=== PATIENT | female | born 1955 | race Caucasian/White ===

== ENCOUNTER 2023-05-12 09:43 | Outpatient (RCR) | payer MEDICARE, SELFPAY ==
[2023-04-14] VITALS (8 sets, daily range): BP systolic 92–146; BP diastolic 57–84; BMI 40.2
[2023-04-14] MEDS: TYLENOL 650 MG PO (09:42)
[2023-04-14] MEDS: NSS 250 IV (09:42)
[2023-04-14] MEDS: DECADRON 0.599999999999999978 MG IV (09:43)
[2023-04-14] MEDS: ZOFRAN 54 MG IV (09:43)
[2023-04-14] MEDS: GAMMAGARD 50 IV (10:14)
[2023-04-14] MEDS: GAMMAGARD 200 IV (10:50)
[2023-04-14] MEDS: GAMMAGARD 300 IV (11:59)
[2023-05-12] VITALS (8 sets, daily range): BP systolic 114–132; BP diastolic 64–77; BMI 40.2
[2023-05-12] MEDS: NSS 250 IV (10:35)
[2023-05-12] MEDS: TYLENOL 650 MG PO (10:35)
[2023-05-12] MEDS: DECADRON 0.599999999999999978 MG IV (10:35)
[2023-05-12] MEDS: ZOFRAN 54 MG IV (10:36)
[2023-05-12] MEDS: GAMMAGARD 50 IV (11:08)
[2023-05-12] MEDS: GAMMAGARD 200 IV (11:41)
[2023-05-12] MEDS: GAMMAGARD 300 IV (12:50)
== END 2023-05-12 23:59 | disposition home or self-care (01) ==
LOC: OID 09:43
PROVIDERS: ATTENDING PHYSICIAN Internal Medicine Critical Care Medicine; FAMILY PHYSICIAN Internal Medicine; OTHER PHYSICIAN Internal Medicine; OTHER PHYSICIAN Internal Medicine Geriatric Medicine
DX: D80.8 Other immunodeficiencies with predominantly antibody defects (principal); D50.8 Other iron deficiency anemias (principal); D83.9 Common variable immunodeficiency, unspecified; D80.9 Immunodeficiency with predominantly antibody defects, unspecified
CPT/HCPCS: 96361; 96365; 96366; 96367; 96375; J1569

== ENCOUNTER 2023-06-09 09:30 | Outpatient (RCR) | payer MEDICARE, SELFPAY ==
[2023-06-09] VITALS (7 sets, daily range): BP systolic 119–154; BP diastolic 69–96; BMI 40.1
[2023-06-09] MEDS: NSS 250 IV (10:27)
[2023-06-09] MEDS: TYLENOL 650 MG PO (10:27)
[2023-06-09] MEDS: DECADRON 0.599999999999999978 MG IV (10:33)
[2023-06-09] MEDS: ZOFRAN 54 MG IV (10:33)
[2023-06-09] MEDS: GAMMAGARD 50 IV (11:01)
[2023-06-09] MEDS: GAMMAGARD 200 IV (11:33)
[2023-06-09] MEDS: GAMMAGARD 300 IV (12:39)
== END 2023-06-10 10:30 | disposition home or self-care (01) ==
LOC: OID 09:30
PROVIDERS: ATTENDING PHYSICIAN Internal Medicine Critical Care Medicine; FAMILY PHYSICIAN Internal Medicine; OTHER PHYSICIAN Internal Medicine; OTHER PHYSICIAN Internal Medicine Geriatric Medicine
DX: D80.8 Other immunodeficiencies with predominantly antibody defects (principal); D83.9 Common variable immunodeficiency, unspecified; D80.9 Immunodeficiency with predominantly antibody defects, unspecified
CPT/HCPCS: 96361; 96365; 96366; 96367; 96375; J1569

== ENCOUNTER → 2023-06-16 13:01 | Outpatient (REF) | payer MEDICARE, SELFPAY | LOC: HWRAD 13:01 | PROVIDERS: ATTENDING PHYSICIAN Podiatrist Foot Surgery; FAMILY PHYSICIAN Internal Medicine | DX: M89.9 Disorder of bone, unspecified (principal); M85.89 Other specified disorders of bone density and structure, multiple sites | CPT/HCPCS: 77080 ==

== ENCOUNTER 2023-07-02 12:23 | Emergency (ER) | payer MEDICARE, SELFPAY ==
[2023-07-02 12:25] VITALS: BP 128/69
[2023-07-02 12:34] VITALS: BMI 41.7
[2023-07-02] MEDS: NORCO 5/325 1 TABLET PO (13:27)
[2023-07-02 13:30] VITALS: BP 134/65
--- NOTE | 2023-07-02 14:11 | ED.MUSCINJ ---
HPI-Injury
General
Chief Complaint: Fall
Source: patient
Exam Limitations: none
Time Seen by Provider: 07/02/23 12:26
Nursing documentation reviewed up to this point in time: agreed with
Travel History
Have you had any contact with someone who has COVID-19?: No
Do you have any symptoms of coronavirus? Fever > 100 degrees, chills, cough, shortness of breath, sore throat, loss of taste or smell, muscle aches, or headache?: No
History of Present Illness-Injury
Is this injury a work related problem?: No
Is pt an associate of [facility]?: No
Initial Injury comments:
Patient states she was walking with her walker and her legs became weak (typical for her). SHe started to fall and her wrist ggot caught between the railing and the wall. Denies hitting her head. COmplains of pain to her right wrist. Brought to
ED via EMS for eval.
Past History
Past History
ED Past Medical History: Arrthythmia, Asthma, CAD, COPD, CVA, HTN, [place], Seizures, Hypothyroidism, Psychiatric, Other and Other
ED Past Surgical History: Cardiac, Cholecystectomy, Orthopedic and Other
Social History
Tobacco: Former smoker
Alcohol: None
Drug: None
Personal: Single
Living: prison
Employment: Disabled
Family History
Family History: Hypertension
Review of Systems
Review of Systems
Allergies reviewed?: Yes
All Other Systems: ROS reviewed and negative except as documented in HPI and ROS
Constitutional: Reports no symptoms
Musculoskeletal: Reports joint pain (pain to right wrist)
Skin: Reports no symptoms
Neurological: Reports no symptoms
Psychiatric: Reports no symptoms
Musculoskeletal Injury Exam
Musculoskeletal Injury Exam
Right Wrist:
Pain with Movement?: Moderate
Tender to palpation?: Moderate
Soft tissue swelling?: Mild
External deformity and angulation?: None
Joint effusion?: None
Contusion?: None
Hematoma-local bleeding into tissue?: Mild
Strain- Sprain- Tear (Connective tissue injury)?: Moderate
Crepitus with movement?: No
Joint instability?: No
Malalignment/deformity?: No
Range of motion: Limited
Distal skin color and temperature: normal-warm & good color
Capillary Refill: normal
Normal distal neurovascular exam?: Yes
Peripheral Pulses: radial (right): 3+
Phy Exam
General Physical Exam
General Presentation: well appearing and no apparent distress
General age: appears stated age
General Skin: warm and dry
General Habitus: normal
General Mental: alert
Musculoskeletal Exam
Musculoskeletal Exam: neuro vasc intact
Skin Exam
Skin Exam: normal color, warm/dry and no rash
Psychiatric Exam
Psychiatric Exam: normal mood/affect
Injury Course
Orders/Labs/Results
Orders:
Orders
07/02/23 12:41
Wrist, Right 3 Views [CR Wrist - Right Min 3 Views] Urgent
Comment:
Reason For Exam: fall
07/02/23 13:21
Hydrocodone 5/APAP 325 [[place] 5/325] 1 tablet PO NOW STA
07/02/23 14:07
Volar Right-Treatment ONCE
*Radiology
Radiology exam reviewed: radiology read reviewed
*Pulse Oximetry
Patient hypoxic: no
*Critical Care Note
Total Time (30-74mins, 75-104mins- exclusive of procedures): Not Applicable
ED Attending Note
-
Portions of this chart may have been created with voice recognition software.� Occasional wrong word or��sound alike� substitutions may have occurred due to the inherent limitations of voice recognition software.
Discharge Plan
Departure
Patient Disposition: Home (Routine Discharge)
Date of Disposition: 07/02/23
Time of Disposition: 14:08
Patient with high blood pressure during this ER visit?: No
Condition: Good
Covid-19: Not Applicable
Discharge Problem:
Fracture of wrist
Instructions: Using Cold for Pain, Splint Care, Wrist Fracture
Prescriptions:
No Action
nitroglycerin 0.4 MG tablet, sublingual
0.4 mg sublingual [id number] PRN (Reason: chest pain)
Myrbetriq 25 MG tablet extended release 24 hr
50 mg PO .QPM
Patient Comments:
TAKES AT 1600
simethicone [Gas Relief (simethicone)] 80 MG tablet,chewable
80 mg PO Q6H PRN (Reason: gas)
memantine 10 MG tablet
10 mg PO BID
ondansetron HCl 8 MG tablet
8 mg PO Q6H PRN (Reason: nausea/vomiting)
folic acid 1 MG tablet
1 mg PO DAILY
quetiapine 300 MG tablet
600 mg PO HS
trazodone 100 MG tablet
200 mg PO HS
meclizine 25 MG tablet
25 mg PO Q6H PRN (Reason: dizziness)
nystatin [Nyamyc] 60 GM powder
60 gm topical DAILY
Rx Instructions:
redness to abdomen and groin
duloxetine 60 mg Capsule,Delayed Release(Dr/Ec)
120 mg PO HS
Breztri Aerosphere 160-9-4.8 mcg/actuation Hfa Aerosol Inhaler
2 inh INHALATION R BID
Nurtec ODT 75 mg Tablet,Disintegrating
75 mg PO Q48H
lamotrigine 200 mg tablet
200 mg PO Q12H
magnesium oxide 420 mg tablet
420 mg PO BID
polyethylene glycol 3350 [Miralax] 17 gram Powder In Packet
17 g PO DAILY PRN (Reason: irregularity)
naloxone 0.4 mg/mL solution
0.4 mg IM Q2MPRN PRN (Reason: opioid overdose)
cyanocobalamin (vitamin B-12) [Vitamin B-12] 1,000 mcg Tablet
1,000 mcg PO DAILY
amlodipine 5 mg tablet
5 mg PO DAILY
furosemide 80 mg Tablet
80 mg PO BID
pantoprazole 40 mg tablet,delayed release (DR/EC)
40 mg PO .QPM
hydroxyzine HCl 25 mg Tablet
25 mg PO BID
ergocalciferol (vitamin D2) 1,250 mcg (50,000 unit) Capsule
1,250 mcg PO QWEEK
Patient Comments:
TAKES ON WEDNESDAYS
alum-mag hydroxide-simeth 200-200-20 mg/5 mL suspension
20 ml PO Q6H PRN (Reason: stomach distress)
Refresh Classic (PF) 1.4-0.6 % [place]
1 drp BOTH EYES QID PRN (Reason: dry eyes)
Saccharomyces boulardii [Florastor] 250 mg Capsule
250 mg PO BID
ferrous sulfate, dried 159 mg (45 mg iron) Tablet Extended Release
159 mg PO BID
guaifenesin [Mucinex] 600 mg Tablet Extended Release 12hr
600 mg PO BID
Vraylar 1.5 mg capsule
3 mg PO DAILY
oxymetazoline 0.05 % [place],Non-Aerosol
1 spray INTRANASAL BID Qty: 0
Eliquis 5 mg Tablet
5 mg PO BID
potassium chloride 20 mEq Tablet,Er Particles/Crystals
20 meq PO DAILY Qty: 30 0RF
oxycodone [OxyContin] 20 mg Tablet,Oral Only,Ext.Rel.12 Hr
20 mg PO Q12 Qty: 6 0RF
clonazepam 0.5 MG tablet
0.5 mg PO QID Qty: 10 0RF
oxycodone-acetaminophen 5-325 mg tablet
1 tab PO Q6H PRN (Reason: moderate pain) Qty: 7 0RF
donepezil 10 mg tablet
10 mg PO BID
chlorhexidine gluconate [Hibiclens] 4 % Liquid
1 applic TOPICAL DAILY
Patient Comments:
TUESDAY AND TUESDAY
Referrals:
Matt Fong MD [Active] - Call in 1-3 days for appt
Nicole Castle MD [Family Provider] -
Interventions
Interventions:
*General Assessment Last Done: 07/02/23 12:32
*Neglect/Abuse Screening Last Done: 07/02/23 12:32
*ED COVID-19 Vaccine History Last Done: 07/02/23 12:34
Discharge Date and Time
Print Language: FRENCH
[2023-07-02 14:57] VITALS: BP 138/66
== END 2023-07-02 15:00 | disposition home or self-care (01) ==
LOC: EMR 12:23
PROVIDERS: EMERGENCY PHYSICIAN Emergency Medicine; FAMILY PHYSICIAN Internal Medicine
DX: S62.101A Fracture of unspecified carpal bone, right wrist, initial encounter for closed fracture (principal); R53.1 Weakness; X58.XXXA Exposure to other specified factors, initial encounter; Y93.01 Activity, walking, marching and hiking; I25.10 Atherosclerotic heart disease of native coronary artery without angina pectoris; E11.40 Type 2 diabetes mellitus with diabetic neuropathy, unspecified; I11.0 Hypertensive heart disease with heart failure; I50.9 Heart failure, unspecified; K21.9 Gastro-esophageal reflux disease without esophagitis; K58.9 Irritable bowel syndrome, unspecified; K44.9 Diaphragmatic hernia without obstruction or gangrene; M19.90 Unspecified osteoarthritis, unspecified site; M79.7 Fibromyalgia; E03.9 Hypothyroidism, unspecified; J45.909 Unspecified asthma, uncomplicated; R56.9 Unspecified convulsions; F20.9 Schizophrenia, unspecified; F31.9 Bipolar disorder, unspecified; I25.2 Old myocardial infarction; Z95.0 Presence of cardiac pacemaker; Z86.73 Personal history of transient ischemic attack (TIA), and cerebral infarction without residual deficits; Z85.828 Personal history of other malignant neoplasm of skin; Z87.891 Personal history of nicotine dependence; Z90.49 Acquired absence of other specified parts of digestive tract; Z98.84 Bariatric surgery status
CPT/HCPCS: 99283; 29125; 73110

== ENCOUNTER 2023-07-04 13:08 | Observation (INO) | payer MEDICARE, SELFPAY ==
[2023-07-04] VITALS (7 sets, daily range): BP systolic 110–148; BP diastolic 59–94; BMI 41.3; BMI 36.8
--- NOTE | 2023-07-04 10:44 | ED.GENMED ---
History of Present Illness
General
Chief Complaint: Fatigue
Source: patient and ambulance crew
Exam Limitations: none
Time Seen by Provider: 07/04/23 10:07
Nursing documentation reviewed up to this point in time: agreed with
Travel History
Have you had any contact with someone who has COVID-19?: No
Do you have any symptoms of coronavirus? Fever > 100 degrees, chills, cough, shortness of breath, sore throat, loss of taste or smell, muscle aches, or headache?: No
History of Present Illness
History of Present Illness:
pt is a 67 y/o F with h/o CVA with R sided weakness, resides at [facility]
was here 2 days ago after falling and fracturing her right wrist
she was splinted and sent back to [facility]
pt usually can get herself tot hebathroom and walk around using walker
she was unable to really get out of bed, feed self, over the past day or two since being back at home
she is very dry and wants water
she says no one was there to help her eat/drink
she also has a sore throat, feels cold;
she denies cp, sob, headache, abdominal pain, vomiting, diarrhea
has pain in her right wrist
per EMS pt was sleepy today and thats' why 911 was caleld
sugar 110
pt was given narcan becuase of her opiate dependence and they thought she was overmedicated but it didn't change symptoms
she does keep her eyes closed but wakes up to talk to us
and was able to give the whole history
Past History
Past History
ED Past Medical History: Arrthythmia, Asthma, CAD, COPD, CVA, HTN, [place], Seizures, Hypothyroidism, Psychiatric, Other and Other
ED Past Surgical History: Cardiac, Cholecystectomy, Orthopedic and Other
Social History
Tobacco: Former smoker
Alcohol: None
Drug: None
Personal: Single
Living: [facility]
Employment: Disabled
Family History
Family History: Hypertension
Review of Systems
Review of Systems
Allergies reviewed?: Yes
All Other Systems: Not applicable
Phy Exam
Physical Exam
Physical Exam:
GENERAL: tired,f atigued , in no apparent distress, eyes closed, easily arousable and speaks clearly, oriented
EYE: pupils equal and reactive
NECK: Supple
ENT: o/p clr, VERY DRY MOUTH
CARDIAC: Regular rate and rhythm , mild edema.
LUNGS: Clear breath sounds bilaterally, no acute respiratory distress, no wheezes/rales/rhonchi
ABDOMEN: Soft, without focal tenderness, no r/g, no cvat, normal bowel sounds
NEUROLOGICAL: Alert and oriented, no focal neuro deficits
SKIN: Warm and dry, skin intact.
MUSCULOSKELETAL: right arm in a splint
no signficant swellignin legs, mild edema
PSYCH: Normal and appropriate interaction.
Course
Orders/Labs/Results
Orders:
Orders
07/04/23 10:31
Cardiac Monitoring- Treatment ONCE
07/04/23 10:32
Electrocardiogram (*1) Urgent
Reason for Study: Other
Other Reason for Exam: sepsis
EKG- Treatment ONCE
07/04/23 10:47
COVID-19 Antigen Urgent
Source: Nasal Swab
Complete Blood Count/With Diff Urgent
Comprehensive Metabolic Panel Urgent
Lactic Acid Q4H
Comment: CANCEL 2nd LACTIC ACID IF 1st LACTIC ACID IS LESS THAN 2
Magnesium Urgent
TSH Reflex To Free T4 Urgent
Influenza A+B Rapid Molecular Urgent
KHADAR Source: Nasal Swab
Specimen Description:
07/04/23 11:37
Potassium Chloride Powder [Klor-Con] 20 meq PO NOW STA
07/04/23 11:50
0.9% Sodium Chloride 250 ml [Nss] 250 ml IV BOLUS
07/04/23 12:01
Potassium Chloride [KCl] 20 meq 0.9% Sodium Chloride 150 ml [Nss] 150 ml IV NOW
07/04/23 12:52
Admit/Transfer Patient As Directed
Co-Sign Provider:
Level of Care: Observation services
Assign to:: Telemetry
Physician / Group: aislinn stiles
Diagnosis: gen weakness, hypokalemia, volume depletion, amb dys
Reason for Telemetry: Arrhythmia
Date to Stop Telemetry: 07/07/23
Time to Stop Telemetry: 11:00
Code Status As Directed
Resuscitation Status: Full Code
07/04/23 Dinner
Cholesterol Lowering
At Your Request: Full Participation
Cholesterol Lowering: Sodium, 2 Gram
07/04/23 15:34
0.9% Sodium Chloride 1000 ml [Nss] 1,000 ml IV 60 mls/hr
Artificial Tears (Pf) [Refresh Eye Drops (Pf)] 1 drops BOTH EYES Q6HPRN PRN
Bisacodyl [Dulcolax] 10 mg RECTAL [id number] PRN
Clonazepam [Klonopin] 0.5 mg PO QID
Docusate W/Senna [Senokot-S] 1 tablet PO BIDPRN PRN
Meclizine [Antivert] 25 mg PO Q6HPRN PRN
Oxycodone/Acetaminophen [Percocet 5/325] 1 tablet PO Q6HPRN PRN
Polyethylene Glycol Powder [Miralax] 17 grams PO DAILYPRN PRN
Simethicone [Mylicon] 80 mg PO Q6HPRN PRN
rimegepant [Nurtec ODT] 75 mg PO Q48H
07/04/23 15:34
VTE Contraindication Routine
VTE Mechanical Device Contraindication: Medical Contraindication
Pharmocologic Contraindication: Medical Contraindication
Comment: pt on eliquis
Activity As Directed
Activity Level: With Assistance
Intake/ Output As Directed
Frequency: Per unit guidelines
Vital Signs As Directed
Frequency: Per unit guidelines
Weight As Directed
Frequency: Daily
Ot Eval And Treat Routine
Pt Eval And Treat Routine
Activity Level: With Assistance
07/04/23 15:52
Ondansetron HCl [Zofran] 8 mg PO Q6HPRN PRN
07/04/23 18:00
Pantoprazole [Protonix] 40 mg PO QPM
Tolterodine Extended Release [Detrol LA] 4 mg PO QPM
07/04/23 20:00
Apixaban [Eliquis] 5 mg PO BID
Budesonide/Formoterol 160/4.5 [Symbicort 160/4.5 Mcg Inhaler] 2 puff INH R BID
Donepezil HCl [Aricept] 10 mg PO BID
HydrOXYZINE [Atarax] 25 mg PO BID
Lamotrigine [Lamictal] 200 mg PO Q12
Magnesium l-Lactate [Mag-Tab Sr] 84 mg PO BID
Memantine HCl [Namenda] 10 mg PO BID
Oxycodone Controlled Release [Oxycontin (Controlled Release)] 20 mg PO Q12
Oxymetazoline HCl [Afrin Nasal [place]] See Dose Instructions NASAL BID
Saccharomyces Boulardii [Florastor] 250 mg PO BID
07/04/23 22:00
Duloxetine Delayed Release [Cymbalta Delayed Release] 60 mg PO HS
Quetiapine Fumarate [Seroquel] 300 mg PO HS
07/05/23 06:00
Complete Blood Count/With Diff IN AM
Comprehensive Metabolic Panel IN AM
07/05/23 08:00
Amlodipine [Norvasc] 5 mg PO DAILY
Cyanocobalamin [Vitamin B-12] 1,000 mcg PO DAILY
FOLic ACID [Folvite] 1 mg PO DAILY
cariprazine [Vraylar] 3 mg PO DAILY
07/06/23 08:00
Ergocalciferol [Drisdol (Vitamin D2)] 50,000 units PO WE
07/07/23 11:00
DC Protocol for Telemetry ONCE
Abnormal Lab Results
07/04/23
10:47
MCH 32.8 H pg
(27.0-31.0)
Absolute Monos (auto) 0.7 H 10^3/uL
(0.1-0.6)
Lymphocytes % 15.6 L %
(20.5-51.1)
Monocytes % 10.0 H %
(1.7-9.3)
Potassium 2.7 L* mmol/L
(3.5-5.1)
Carbon Dioxide 33 H mmol/L
(22-30)
Glucose 112 H mg/dl
(70-99)
Magnesium 2.4 H mg/dl
(1.6-2.3)
Alkaline Phosphatase 130 H U/L
(38-126)
07/04/23 10:47
07/04/23 10:47
Vital Signs
Initial and Last Documented VS:
Initial Vital Signs
Temp Pulse Resp BP Pulse Ox
98.6 F 72 16 139/62 94
07/04/23 10:18 07/04/23 10:18 07/04/23 10:18 07/04/23 10:18 07/04/23 10:18
Last Documented Vital Signs
Temp Pulse Resp BP Pulse Ox
98.3 F 70 16 142/60 94
07/04/23 13:45 07/04/23 13:45 07/04/23 13:45 07/04/23 13:45 07/04/23 13:45
MDM/Problems Addressed
Differential Diagnosis Includes:
overmedicated, dehdyration
MDM/Problems Addressed:
67 y/o F from [facility], h/o CVA chronic R weakness, some mild dementia (she is a&ox3 today), chf on lasix bid;
here for generalized fatigue, somnolence
was here 2 days ago for fall, has fracture of right wrist, splinted and sent back
pt hasn't been able to get up much or eat or drink because of her arm
chronic opiates for chronic pain; today was really sleepy for staff; ems gave narcan no change; she is tired here but wakes and speaks clearly and answers questions correctly; looks extremely dry, says no one helped her eat and drink in 24 hours
k is 2.7, mag normal; getting ivf and k, pt is too weak to go home
*Critical Care Note
Total Time (30-74mins, 75-104mins- exclusive of procedures): Not Applicable
ED Attending Note
-
Portions of this chart may have been created with voice recognition software.� Occasional wrong word or��sound alike� substitutions may have occurred due to the inherent limitations of voice recognition software.
Discharge Plan
Departure
Patient Disposition: Admit
Date of Disposition: 07/04/23
Time of Disposition: 11:38
Admit to: Telemetry
Presentation/result/management discussed w/ accepting MD/DO: Hospitalist
Condition: Fair
Covid-19: Not Applicable
Discharge Problem:
Fatigue, Hypokalemia, Dehydration
Interventions
Interventions:
*Risk Screen - Suicide Last Done: 07/04/23 10:18
*General Assessment Last Done: 07/04/23 10:18
*Neglect/Abuse Screening Last Done: 07/04/23 10:18
ED- Fall Risk Assessment Last Done: 07/04/23 10:18
*ED COVID-19 Vaccine History Last Done: 07/04/23 10:18
*Nursing Disposition Last Done: 07/04/23 15:32
Discharge Date and Time
Discharge Date/Time: 07/04/23 15:33
[2023-07-04 10:59] LABS: % Basophils 0.4 % (0-2); % Eosinophils 1.5 % (0-6); % Immature Granulocytes 0.4 % (0-0.5); % Lymphocytes 15.6 % (20.5-51.1); % Neutrophils 72.1 % (42.2-75.2); Absolute Eosinophils 0.1 10^3/uL (0-0.7); Absolute Lymphocytes 1.2 10^3/uL (1.2-3.4); Absolute Monocytes 0.7 10^3/uL (0.1-0.6); Absolute Neutrophils 5.4 10^3/uL (1.4-6.5); Hematocrit 44.5 % (37.0-47.0); Hemoglobin 14.9 g/dL (12.0-16.0); Mean Corp Hgb Conc. 33.5 g/dL (33.0-37.0); Mean Corpuscular Hgb 32.8 pg (27.0-31.0); Mean Platelet Volume 9.3 fL (7.4-10.4); Nucleated Red Blood Cells % 0 %; Platelet Count 195 10^3/uL (130-400); Red Blood Cell Count 4.54 10^6/uL (4.20-5.40); Red Cell Dist. Width 14.4 % (11.5-14.5); White Blood Cell Count 7.4 10^3/uL (4.8-10.8)
[2023-07-04 11:19] LABS: ALT (SGPT) 16 U/L (0-35); AST (SGOT) 26 U/L (14-36); Alkaline Phosphatase 130 U/L (38-126); Calcium 9.6 mg/dl (8.4-10.2); Estimated Creatinine Clearance 72 ml/min; Glucose 112 mg/dl (70-99); Magnesium 2.4 mg/dl (1.6-2.3); Sodium 143 mmol/L (135-145); Total Bilirubin 1.1 mg/dl (0.2-1.3); Total Protein 7.5 g/dl (6.3-8.2); eGFR > 60.00
[2023-07-04 11:22] LABS: Lactic Acid 0.8 mmol/L (0.7-2.0)
[2023-07-04 11:23] LABS: Blood Urea Nitrogen 11 mg/dl (7-17); Carbon Dioxide 33 mmol/L (22-30); Chloride 103 mmol/L (98-107); Potassium 2.7 mmol/L (3.5-5.1)
[2023-07-04 11:25] LABS: COVID-19 Antigen Negative (Negative)
[2023-07-04] MEDS: KLOR-CON 20 MEQ PO (11:56)
[2023-07-04] MEDS: KCL 160 MEQ IV (12:18)
[2023-07-04] MEDS: NSS 250 IV (12:29)
--- NOTE | 2023-07-04 12:41 | HPS.HSE ---
Family Physician
-
Family Physician: Nicole Castle
Chief Complaint
-
Weakness, decreased oral intake
History of Present Illness
67-year-old female from [facility] currently living in assisted living. She reports she fell 2 days ago was seen in the ER and had a right wrist fracture. She reports going back to [facility] where she has not been eating or drinking for
approximately 1 day due to feeling dizzy and nauseous. She does state staff does bring food to her room. Her mouth and lips are and peeling. She denies headache, blurred vision, chest pain, palpitations, shortness breath, cough, fever, chills,
abdominal pain, nausea, vomiting, diarrhea, urinary symptoms. She has a right volar wrist splint in place with sensation intact to distal fingers she is still currently having pain ,but she is on chronic pain medication for her back oxycodone 20 mg
twice daily and as needed oxycodone/acetaminophen. She has past medical history of falls, chronic ambulatory dysfunction, dementia, Binswanger's disease, CVA, seizures, chronic back pain on chronic oral opiates, gammaglobulin deficiency with
infusions at [facility], chronic bilateral leg edema, HTN, paroxysmal A-fib on Eliquis, permanent pacemaker�sick sinus syndrome, CAD, cardiac murmur, COPD, asthma, hypothyroidism, bipolar disorder, depression, anxiety, schizophrenia,
overactive bladder, migraine headaches, vitamin B 12 deficiency, vitamin D deficiency, dry eye syndrome, obesity morbid.
Medical History
Past Medical History
Past Medical History: Reports Other
Additional Past Medical History:
Recurrent falls
CAD
asthma/COPD
CVA
Binswanger's disease,
Gammaglobulin deficiency
seizures,
Chronic pain on chronic oral opiates
neuropathy,
hypothyroidism,
lower extremity lymphedema
Essential hypertension
Bipolar disorder
pulmonary embolism without acute cor pulmonale, unspecified chronicity
Sick sinus syndrome
Vascular dementia without behavioral disturbance�
Right carpal tunnel syndrome �
Paroxysmal atrial fibrillation �
Chronic pain associated with significant psychosocial dysfunction
Morbid obesity
Arthritis of right wrist� �
Arthritis of carpometacarpal (CMC) joint of right thumb
cardiac pacemaker, pacemaker dependent.� �
Past Surgical History: Reports Other
Additional Past Surgical History:
Pacemaker�sick sinus syndrome
Bilateral knee replacements
Port right upper chest wall
Social History
Tobacco: Non-smoker
Alcohol: None
Drug: None
Living: Group Home
Employment: Not Employed
Family History
Family History: Not pertinent
Allergies / Home Medications
Allergies reflects when Allergies were last updated in [email or web address].
Home Medications with original date entered in [email or web address]
Allergy/Medication List:
Allergies
Allergy/AdvReac Type Severity Reaction Status Date / Time
carbamazepine Allergy Rash Verified 07/04/23 10:25
cefuroxime axetil Allergy Rash Verified 07/04/23 10:25
[From Ceftin]
Cephalosporins Allergy Rash Verified 07/04/23 10:25
enalaprilat Allergy vasotec-laryngeal Verified 07/04/23 10:25
swelling
enalaprilat dihydrate Allergy Laryngeal Verified 07/04/23 10:25
[From Vasotec] swelling
house dust Allergy asthma Verified 07/04/23 10:25
ibuprofen Allergy Rash Verified 07/04/23 10:25
lithium Allergy Neurotoxic Verified 07/04/23 10:25
Penicillins Allergy laryngeal Verified 07/04/23 10:25
swelling
pregabalin [From Lyrica] Allergy neurotoxic Verified 07/04/23 10:25
doxycycline calcium AdvReac Unknown Verified 07/04/23 10:25
[From Vibramycin]
doxycycline hyclate AdvReac Unknown Verified 07/04/23 10:25
[From Vibramycin]
doxycycline monohydrate AdvReac Unknown Verified 07/04/23 10:25
[From Vibramycin]
ANIMALS Allergy asthma Uncoded 07/04/23 10:25
attack
MOLD Allergy Unknown Uncoded 07/04/23 10:25
Home Medications
nitroglycerin 0.4 mg sublingual tablet 0.4 mg sublingual [id number] PRN chest pain 12/20/18
mirabegron 25 mg tablet,extended release 24 hr (Myrbetriq) 50 mg PO QPM Urinary Issue 09/05/19
memantine 10 mg tablet 10 mg PO BID Dementia 08/28/20
simethicone 80 mg chewable tablet (Gas Relief (simethicone)) 80 mg PO Q6HPRN PRN gas 08/28/20
ondansetron HCl 8 mg tablet 8 mg PO Q6HPRN PRN nausea/vomiting 09/01/20
folic acid 1 mg tablet 1 mg PO DAILY Supplement 09/02/20
quetiapine 300 mg tablet 300 mg PO HS mental health 10/30/20
trazodone 100 mg tablet 100 mg PO HS mental health/sleep 10/30/20
meclizine 25 mg tablet 25 mg PO Q6HPRN PRN dizziness 12/28/20
nystatin 100,000 unit/gram topical powder (Nyamyc) 1 applic topical [id number] PRN FOLDS/GROIN 12/28/20
duloxetine 60 mg capsule,delayed release 60 mg PO HS Depression 05/19/21
rimegepant 75 mg disintegrating tablet (Nurtec ODT) 75 mg PO Q48H migraines 12/10/21
budesonide 160 mcg-glycopyr 9 mcg-formot 4.8 mcg/actuation HFA inhaler (Breztri Aerosphere) 2 inh inhalation R BID Lung/Breathing Issues 01/21/22
Saccharomyces boulardii 250 mg capsule (Florastor) 250 mg PO BID probiotic 11/26/22
aluminum-mag hydroxide-simethicone 200 mg-200 mg-20 mg/5 mL oral susp 20 ml PO Q6HPRN PRN stomach distress 11/26/22
amlodipine 5 mg tablet 5 mg PO DAILY Blood Pressure 11/26/22
cariprazine 1.5 mg capsule (Vraylar) 3 mg PO DAILY Depression 11/26/22
cyanocobalamin (vitamin B-12) 1,000 mcg tablet (Vitamin B-12) 1,000 mcg PO DAILY Supplement 11/26/22
ergocalciferol (vitamin D2) 1,250 mcg (50,000 unit) capsule 1,250 mcg PO WE Supplement 11/26/22
ferrous sulfate, dried 159 mg (45 mg iron) tablet,extended release 159 mg PO BID Supplement 11/26/22
furosemide 80 mg tablet 80 mg PO BID Fluid Retention/Swelling 11/26/22
guaifenesin 600 mg tablet, extended release 12 hr (Mucinex) 600 mg PO BID Cough 11/26/22
hydroxyzine HCl 25 mg tablet 25 mg PO BID Allergies 11/26/22
lamotrigine 200 mg tablet 200 mg PO Q12H Seizures 11/26/22
magnesium oxide 420 mg tablet 420 mg PO BID Electrolyte Repletion 11/26/22
naloxone 0.4 mg/mL injection solution 0.4 mg IM Q2MPRN PRN opioid overdose 11/26/22
oxymetazoline 0.05 % nasal spray 1 spray intranasal BID Congestion ##0 11/26/22
pantoprazole 40 mg tablet,delayed release 40 mg PO QPM Gastrointestinal Issue 11/26/22
polyethylene glycol 3350 17 gram oral powder packet (Miralax) 17 g PO DAILYPRN PRN irregularity 11/26/22
polyvinyl alcohol-povidone (PF) 1.4 %-0.6 % eye drops in a dropperette (Refresh Classic (PF)) 1 drp BOTH EYES Q6HPRN PRN dry eyes 11/26/22
apixaban 5 mg tablet (Eliquis) 5 mg PO BID Blood Clot Prevention/Tx 11/27/22
clonazepam 0.5 mg tablet 0.5 mg PO QID Mental Health/Anxiety #10 tabs 12/02/22
oxycodone 20 mg tablet,crush resistant,extended release 12 hr (OxyContin) 20 mg PO Q12 #6 tabs 12/02/22
potassium chloride 20 mEq tablet,extended release(part/cryst) 20 meq PO DAILY #30 tabs 12/02/22
chlorhexidine gluconate 4 % topical liquid (Hibiclens) 1 applic topical SUWE Skin Issues 02/27/23
donepezil 10 mg tablet 10 mg PO BID MENTAL ABILITY 02/27/23
loperamide 2 mg tablet 2 mg PO TID 07/04/23
oxycodone-acetaminophen 5 mg-325 mg tablet 1 tab PO Q6HPRN PRN moderate pain 07/04/23
phenylephrine 0.25 %-pramoxine 1 %-glycerin-wh.petrolatum rectal cream (Preparation H Maximum Strength) 1 applic NV BIDPRN PRN HEMPRRHIODS 07/04/23
Review of Systems
-
History Source: Patient and Group Home
A 12 point ROS was completed and negative except as noted: Yes
Constitutional: Reports Fatigue; Denies Fever or Chills
EENT: Reports Other (Dry oral mucosa); Denies Sore Throat or Runny Nose
Respiratory: Denies Cough or Trouble Breathing
Cardiac: Denies Chest Pain, Diaphoresis or Palpitations
Abdomen/GI: Denies Abdominal Pain, Nausea, Vomiting or Diarrhea
: Denies Dysuria, Frequency, Flank Pain or Incontinence
Musculoskeletal: Reports Joint Pain (Right wrist from recent distal radius fracture with OCL splint in place)
Skin: Denies Itching or Rash
Neurological: Reports Weakness (Generalized); Denies Dizzy or Headache
Endocrine: Reports No Symptoms
Hematologic/Lymphatic: Reports No Symptoms
Psych: Reports Calm
Physical Exam
Vital Signs
Vital Signs
Temp Pulse Resp BP Pulse Ox
98.6 F 72 16 112/94 92
07/04/23 10:18 07/04/23 12:30 07/04/23 12:30 07/04/23 12:00 07/04/23 12:00
Physical Exam
General: No Apparent Distress, Conversant, Morbidly Obese and Other (Oriented to name, place, place of living but not specific dates or all of medical history); No Pain, Fever or Chills
HEENT: NormoCephalic, Anicteric, PERRLA and No Ptosis
Respiratory: Clear; No Wheezes, Rales or Rhonchi
Cardiac: S1/S2, Regular Rhythm, Murmur (2/6 systolic) and Peripheral Edema (Chronic bilateral nonpitting lymphedema legs); No Rub or Gallop
Breast: Deferred by me
GI: Soft, Non Tender, Non Distended, Normal Bowel Sounds and No Hepatosplenomegaly
Rectal: Deferred by Provider
Genito-urinary: Deferred by me
Musculoskeletal: No Clubbing, No Cyanosis, Edema, Left Upper Extremity (Right wrist from recent distal radius fracture with OCL splint in place), Edema, Left Lower Extremity (Chronic nonpitting lymphedema) and Edema, Right Lower Extremity (Chronic
nonpitting lymphedema); No Edema, Right Upper Extremity
Skin: Warm and Dry; No Rash
Neuro: Awake, Alert, Oriented (Name, place, place of living, some of history but not dates or reasons for meds) and AO x 3; No Slurred Speech, Facial Droop or Tremors
Psych: Calm
Laboratory Results
-
07/04/23 10:47
07/04/23 10:47
Laboratory Results
Lactic Acid Cancelled 07/04/23 14:45
Total Bilirubin 1.1 mg/dl (0.2-1.3) 07/04/23 10:47
AST 26 U/L (14-36) 07/04/23 10:47
ALT 16 U/L (0-35) 07/04/23 10:47
Alkaline Phosphatase 130 U/L (38-126) H 07/04/23 10:47
Impression/Plan
-
Impression/plan:
Observation telemetry
#Acute generalized weakness secondary to Volume depletion
COVID/flu negative
Iv Nss 500 cc bolus given in ER
IV NSS 60 cc/hr x 1 liter
-Hold Lasix 80 mg daily, may resume Lasix 80 mg twice daily tomorrow
-PT/OT/case management consult
#Hypokalemia 2/2 diuretics, decreased oral intake
K2.7 give KCl rider 20 mEq, +20 mEq oral
-Give additional 40 mEq Lasix now
Follow BMP
#Dementia�mild.,Binswangers disease
Oriented to name, place, place of living not clear on dates
-Continue Namenda 10 mg twice daily,Donepezil
#Fracture right distal radius metaphysis on 07/01/2021
-Current volar right wrist splint in place
-Per discussion with Dr. Fong will place patient in Velcro wrist splint with follow-up in approximately 4 to 5 weeks
-Consult Ortho-Dr. Fong made aware
#Chronic ambulatory dysfunction
#Chronic falls
-Uses walker at baseline but currently unable
PT/OT/family service caseworker consult
#Chronic pain�back
-Continue oxycodone 20 mg 6 AM, 6 PM
-Continue oxycodone/acetaminophen 1 tab at bedtime 2200
#Gammaglobulin deficiency
-Has port right upper chest wall gets infusions of gammaglobulin with [facility]
#HTN�benign
Continue amlodipine 5 mg daily
#Chronic bilateral leg lymphedema
-Hold p.o. Lasix
#Seizure history
-Continue Lamictal 200 mg twice daily
#Paroxysmal A-fib
-Continue Eliquis
-No rate control meds listed
#Pacemaker�sick sinus syndrome
#Hx PE unknown year
#CAD
#Cardiac murmur
#Asthma�no acute exacerbation
#COPD�no acute exacerbation
-Continue inhalers
#Hypothyroidism
-No meds listed
#CVA hx
#Bipolar disorder
#Depression
#Anxiety
#Schizophrenia
-Continue Klonopin 0.5 mg p.o. 4 times daily,
duloxetine 60 mg at bedtime,
Seroquel 300 mg at bedtime,
trazodone 100 mg at bedtime
Vraylar 3 mg daily
#Overactive bladder
-Continue Myrbetriq
-Monitor urine output
#Obesity due to excess calorie consumption�BMI 41.2 KG
Weight loss recommended, low-fat diet
Other PMH:
Migraine headaches�continue Nurtec as needed
Vitamin B12 deficiency-continue folic acid, B12 1000 mcg daily
Vitamin D deficiency-continue vitamin D 2
-Dry eye syndrome, continue eyedrops
DVT prophylaxis
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
Full code
[2023-07-04] MEDS: KCL 40 MEQ PO (14:14)
--- NOTE | 2023-07-04 15:45 | W.PN.UPDATE ---
Update Note
Progress Note Update
This note serves as supplemental to history and physical by Alea Lopez dated 07/03.
67-year-old female from [facility] currently living in assisted living. She reports she fell 2 days ago was seen in the ER and had a right wrist fracture.. Minimal p.o. intake, has been feeling dizzy/nauseous. Patient unable to ambulate.
Has not seen orthopedic surgery as was planned to outpatient. Otherwise normotensive, afebrile. Labs are significant for hypokalemia, otherwise grossly unremarkable. Resector dated 07/01 with evidence of acute nondisplaced oblique fracture of the
distal radial metaphysis. Plan, hold Lasix for today, resume Lasix tomorrow. IV fluids today. Aggressive potassium repletion, follow-up BMP this afternoon. PT/OT. Consult Ortho.
--- NOTE | 2023-07-04 17:00 | PTCARENOTE ---
admitted in to room 416-1. AAOx3, drowsy. VSS. Patient oriented to unit and call connor system. Agreeable with ringing call connor for OOB assistance.
[2023-07-04] MEDS: KLONOPIN 0.5 MG PO ×2 (17:22→22:42)
[2023-07-04] MEDS: PROTONIX 40 MG PO (17:22)
[2023-07-04] MEDS: NSS 1000 IV (17:23)
[2023-07-04] MEDS: DETROL LA 4 MG PO (17:23)
[2023-07-04] MEDS: KLONOPIN PO (17:26)
[2023-07-04] MEDS: SYMBICORT 160/4.5 MCG INHALER 2 PUFF INH (19:38)
[2023-07-04] MEDS: FLORASTOR 250 MG PO (20:19)
[2023-07-04] MEDS: ATARAX 25 MG PO (20:20)
[2023-07-04] MEDS: AFRIN NASAL SPRAY 1 SPRAYS NASAL (20:20)
[2023-07-04] MEDS: ARICEPT 10 MG PO (20:20)
[2023-07-04] MEDS: MAG-TAB SR 84 MG PO (20:20)
[2023-07-04] MEDS: ELIQUIS 5 MG PO (20:20)
[2023-07-04] MEDS: LAMICTAL 200 MG PO (20:20)
[2023-07-04] MEDS: NAMENDA 10 MG PO (20:20)
[2023-07-04] MEDS: PERCOCET 5/325 1 TABLET PO (20:24)
[2023-07-04] MEDS: ANTIVERT 25 MG PO (20:41)
[2023-07-04] MEDS: OXYCONTIN (CONTROLLED RELEASE) 20 MG PO (22:42)
[2023-07-04] MEDS: SEROQUEL 300 MG PO (22:42)
[2023-07-04] MEDS: CYMBALTA DELAYED RELEASE 60 MG PO (22:42)
[2023-07-04] MEDS: DESENEX/MITRAZOL/ZEASORB 1 APPLIC TOPICAL (22:43)
[2023-07-05] VITALS (8 sets, daily range): BP systolic 113–144; BP diastolic 63–89; PULSE 63–64; O2SAT 95–98; BMI 34.4
[2023-07-05 04:48] LABS: % Basophils 0.6 % (0-2); % Eosinophils 2.1 % (0-6); % Immature Granulocytes 0.3 % (0-0.5); % Lymphocytes 26.2 % (20.5-51.1); % Monocytes 8.9 % (1.7-9.3); % Neutrophils 61.9 % (42.2-75.2); Absolute Eosinophils 0.1 10^3/uL (0-0.7); Absolute Lymphocytes 1.6 10^3/uL (1.2-3.4); Absolute Monocytes 0.6 10^3/uL (0.1-0.6); Absolute Neutrophils 3.8 10^3/uL (1.4-6.5); Hematocrit 42.3 % (37.0-47.0); Hemoglobin 14.1 g/dL (12.0-16.0); Mean Corp Hgb Conc. 33.3 g/dL (33.0-37.0); Mean Corpuscular Hgb 32.9 pg (27.0-31.0); Mean Corpuscular Volume 98.6 fL (81.0-99.0); Mean Platelet Volume 9.3 fL (7.4-10.4); Nucleated Red Blood Cells % 0 %; Platelet Count 172 10^3/uL (130-400); Red Blood Cell Count 4.29 10^6/uL (4.20-5.40); Red Cell Dist. Width 14.4 % (11.5-14.5); White Blood Cell Count 6.2 10^3/uL (4.8-10.8)
[2023-07-05 05:36] LABS: Albumin 3.8 g/dl (3.5-5.0); Carbon Dioxide 26 mmol/L (22-30)
[2023-07-05 05:46] LABS: ALT (SGPT) 15 U/L (0-35); AST (SGOT) 22 U/L (14-36); Alkaline Phosphatase 115 U/L (38-126); Blood Urea Nitrogen 12 mg/dl (7-17); Calcium 9.2 mg/dl (8.4-10.2); Chloride 107 mmol/L (98-107); Estimated Creatinine Clearance 84 ml/min; Glucose 101 mg/dl (70-99); Potassium 3.2 mmol/L (3.5-5.1); Sodium 141 mmol/L (135-145); Total Bilirubin 0.8 mg/dl (0.2-1.3); Total Protein 6.9 g/dl (6.3-8.2); eGFR > 60.00
[2023-07-05] MEDS: SYMBICORT 160/4.5 MCG INHALER 2 PUFF INH ×2 (07:38→19:45)
[2023-07-05] MEDS: SPIRIVA RESPIMAT 2.5 MCG 2 PUFF INH (07:38)
--- NOTE | 2023-07-05 08:20 | W.PN.UPDATE ---
Update Note
Progress Note Update
With nondisplaced distal radius fx
Rec brace part time receptionist for 5 weeks
Have F/U with me in about 10-14 days
thanks
GGMD
[2023-07-05] MEDS: KCL ELIXIR 40 MEQ PO (08:39)
[2023-07-05] MEDS: ARICEPT 10 MG PO ×2 (08:40→20:14)
[2023-07-05] MEDS: VITAMIN B-12 1000 MCG PO (08:40)
[2023-07-05] MEDS: ATARAX 25 MG PO ×2 (08:40→20:15)
[2023-07-05] MEDS: OXYCONTIN (CONTROLLED RELEASE) 20 MG PO ×2 (08:40→20:14)
[2023-07-05] MEDS: LAMICTAL 200 MG PO ×2 (08:40→20:14)
[2023-07-05] MEDS: FOLVITE 1 MG PO (08:40)
[2023-07-05] MEDS: AFRIN NASAL SPRAY 1 SPRAYS NASAL ×2 (08:40→20:15)
[2023-07-05] MEDS: NAMENDA 10 MG PO ×2 (08:40→20:15)
[2023-07-05] MEDS: LASIX 80 MG PO ×2 (08:40→15:11)
[2023-07-05] MEDS: ELIQUIS 5 MG PO ×2 (08:40→20:14)
[2023-07-05] MEDS: MAG-TAB SR 84 MG PO ×2 (08:40→20:15)
[2023-07-05] MEDS: NORVASC 5 MG PO (08:40)
[2023-07-05] MEDS: FLORASTOR 250 MG PO ×2 (08:40→20:15)
[2023-07-05] MEDS: KLONOPIN 0.5 MG PO ×4 (08:40→23:11)
[2023-07-05] MEDS: DESENEX/MITRAZOL/ZEASORB 1 APPLIC TOPICAL ×2 (08:41→20:16)
[2023-07-05] MEDS: PERCOCET 5/325 1 TABLET PO ×2 (12:10→23:13)
[2023-07-05] MEDS: ANTIVERT 25 MG PO ×2 (12:13→23:10)
--- NOTE | 2023-07-05 12:33 | CM ---
Patient seen bedside, initial assessment completed. Patient reports she resides at [facility], has a walker, and does receive PT/OT at facility. Patient PCP Nicole Castle, pharmacy [facility]. Patient reports she does not have any
family other than her cousin, Ping, who is her POA. TORRES form reviewed, refused to sign, placed in patients chart.
CM spoke with Nakita, Rewinder Operator from [facility]. Nakita reports patient recently transitioned from Personal Care to LTC. Per Nakita, patient typically alert and oriented. CM discussed patient is currently observation status, PT/OT is consulted
to see patient. Nakita reports patient was receiving therapy through part B services. CM will update Nakita on patients needs upon discharge.
Plan; return to [facility], watch PT/OT evals.
--- NOTE | 2023-07-05 14:14 | W.PN.HOSP.TC ---
Today's Communication/Plan
-
K repletion
PT/OT - dispo planning
Assessment / Plan
Assessment / Plan
Physical Exam
General: No Apparent Distress, Conversant, Morbidly Obese and Other (Oriented to name, place, place of living but not specific dates or all of medical history); No Pain, Fever or Chills
HEENT: NormoCephalic, Anicteric, PERRLA and No Ptosis
Respiratory: Clear; No Wheezes, Rales or Rhonchi
Cardiac: S1/S2, Regular Rhythm, Murmur (2/6 systolic) and Peripheral Edema (Chronic bilateral nonpitting lymphedema legs); No Rub or Gallop
Breast: Deferred by me
GI: Soft, Non Tender, Non Distended, Normal Bowel Sounds and No Hepatosplenomegaly
Rectal: Deferred by Provider
Genito-urinary: Deferred by me
Musculoskeletal: No Clubbing, No Cyanosis, Edema, Left Upper Extremity (Right wrist from recent distal radius fracture with OCL splint in place), Edema, Left Lower Extremity (Chronic nonpitting lymphedema) and Edema, Right Lower Extremity (Chronic
nonpitting lymphedema); No Edema, Right Upper Extremity
Skin: Warm and Dry; No Rash
Neuro: Awake, Alert, Oriented (Name, place, place of living, some of history but not dates or reasons for meds) and AO x 3; No Slurred Speech, Facial Droop or Tremors
Psych: Calm
#Acute generalized weakness
# Ambulatory dysfunction
� No obvious infectious source
� No urinary symptoms
� IV fluids given
� Mostly deconditioned, aggressive PT/OT�most likely will need placement
� Can resume Lasix today
� Replete electrolytes
#Hypokalemia 2/2 diuretics, decreased oral intake
Monitor and replete
#Dementia�mild.,Binswangers disease
Oriented to name, place, place of living not clear on dates
-Continue Namenda 10 mg twice daily,Donepezil
#Fracture right distal radius metaphysis on 07/01/2021
-Current volar right wrist splint in place
�Ortho PDX consulted
� Brace full-time for 5 weeks
-Follow-up orthopedics in 10 to 14 days
#Chronic ambulatory dysfunction
#Chronic falls
-Uses walker at baseline but currently unable
PT/OT/shoe caser consult
#Chronic pain�back
-Continue oxycodone 20 mg 6 AM, 6 PM
-Continue oxycodone/acetaminophen 1 tab at bedtime 2200
#Gammaglobulin deficiency
-Has port right upper chest wall gets infusions of gammaglobulin with [facility]
#HTN�benign
Continue amlodipine 5 mg daily
#Chronic bilateral leg lymphedema
�Lasix
#Seizure history
-Continue Lamictal 200 mg twice daily
#Paroxysmal A-fib
-Continue Eliquis
-No rate control meds listed
#Pacemaker�sick sinus syndrome
#Hx PE unknown year
#CAD
#Cardiac murmur
#Asthma�no acute exacerbation
#COPD�no acute exacerbation
-Continue inhalers
#Hypothyroidism
-No meds listed
#CVA hx
#Bipolar disorder
#Depression
#Anxiety
#Schizophrenia
-Continue Klonopin 0.5 mg p.o. 4 times daily,
duloxetine 60 mg at bedtime,
Seroquel 300 mg at bedtime,
trazodone 100 mg at bedtime
Vraylar 3 mg daily
#Overactive bladder
-Continue Myrbetriq
-Monitor urine output
#Obesity due to excess calorie consumption�BMI 41.2 KG
Weight loss recommended, low-fat diet
Migraine headaches�continue Nurtec as needed
Vitamin B12 deficiency-continue folic acid, B12 1000 mcg daily
Vitamin D deficiency-continue vitamin D 2
-Dry eye syndrome, continue eyedrops
DVT prophylaxis
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
Full code
Anticipated Discharge: 24 - 48 hours
Subjective/Interval History
-
Date of Service: July 05, 2023
No acute events
Objective Data
-
Labs:
Laboratory Results
07/05/23
04:42
WBC 6.2
Hgb 14.1
Hct 42.3
Plt Count 172
Sodium 141
Potassium 3.2 L
Chloride 107
Carbon Dioxide 26
BUN 12
Creatinine 0.8
Glucose 101 H
Calcium 9.2
Total Bilirubin 0.8
AST 22
ALT 15
Alkaline Phosphatase 115
Vital Signs:
Vital Signs
Temp Pulse Resp BP Pulse Ox
98.2 F 64 18 113/63 97
07/05/23 12:13 07/05/23 12:13 07/05/23 12:13 07/05/23 12:13 07/05/23 12:13
I&O
07/04/23 07/05/23 07/06/23
06:59 06:59 06:59
Intake Total 960 / 960
Output Total 325 / 325
Balance 635 / 635
Review of Systems
-
History Source: Patient
All other systems: Not reviewed unless documented
Physical Exam
-
General: Well Developed, Well Nourished, No Apparent Distress and Morbidly Obese
HEENT: Normocephalic, Atraumatic and Moist Mucous Membranes
Respiratory: Clear to Auscultation
Cardiac: Regular Rhythm, S1/S2 and Murmur (3/6AS)
GI: Soft, Nontender and Nondistended
Musculoskeletal: No Clubbing, No Cyanosis, Edema, Right Lower Extrem (lymphedema) and Edema, Left Lower Extrem
Skin: Rash (cellulitis somewhat less red, less warm and slight decrease in size)
Neuro: Awake, Alert and Oriented
Psych: Calm
Data Reviewed
-
Diagnostic Radiology: Report Reviewed by me
Labs: Labs Reviewed by me
[2023-07-05] MEDS: DETROL LA 4 MG PO (17:00)
[2023-07-05] MEDS: PROTONIX 40 MG PO (17:01)
[2023-07-05] MEDS: CYMBALTA DELAYED RELEASE 60 MG PO (23:10)
[2023-07-05] MEDS: SEROQUEL 300 MG PO (23:10)
[2023-07-06 03:22] VITALS: BP 121/67
[2023-07-06 06:00] VITALS: BMI 36.9
[2023-07-06 07:57] VITALS: BP 130/60
[2023-07-06] MEDS: SYMBICORT 160/4.5 MCG INHALER 2 PUFF INH ×2 (08:57→19:14)
[2023-07-06] MEDS: SPIRIVA RESPIMAT 2.5 MCG 2 PUFF INH (08:57)
[2023-07-06] MEDS: OXYCONTIN (CONTROLLED RELEASE) 20 MG PO ×2 (09:24→19:52)
[2023-07-06] MEDS: ARICEPT 10 MG PO ×2 (09:24→19:52)
[2023-07-06] MEDS: KLONOPIN 0.5 MG PO ×4 (09:24→22:15)
[2023-07-06] MEDS: NORVASC 5 MG PO (09:25)
[2023-07-06] MEDS: LASIX 80 MG PO ×2 (09:25→15:54)
[2023-07-06] MEDS: LAMICTAL 200 MG PO ×2 (09:25→19:52)
[2023-07-06] MEDS: FOLVITE 1 MG PO (09:25)
[2023-07-06] MEDS: ELIQUIS 5 MG PO ×2 (09:25→19:52)
[2023-07-06] MEDS: MAG-TAB SR 84 MG PO ×2 (09:25→19:52)
[2023-07-06] MEDS: ATARAX 25 MG PO ×2 (09:25→19:53)
[2023-07-06] MEDS: NAMENDA 10 MG PO ×2 (09:26→19:53)
[2023-07-06] MEDS: FLORASTOR 250 MG PO ×2 (09:26→19:52)
[2023-07-06] MEDS: AFRIN NASAL SPRAY 2 SPRAYS NASAL (09:26)
[2023-07-06] MEDS: VITAMIN B-12 1000 MCG PO (09:26)
[2023-07-06] MEDS: DRISDOL (VITAMIN D2) 50000 UNITS PO (09:28)
[2023-07-06] MEDS: DESENEX/MITRAZOL/ZEASORB 1 APPLIC TOPICAL ×2 (09:29→19:53)
[2023-07-06 12:31] VITALS: BP 142/68
[2023-07-06] MEDS: PERCOCET 5/325 1 TABLET PO ×2 (12:41→22:15)
[2023-07-06] MEDS: ANTIVERT 25 MG PO ×2 (12:41→22:15)
--- NOTE | 2023-07-06 13:03 | CM ---
CM spoke with Debby from [facility], patient is eligible for [facility] waiver program. CM met with patient and explained patient qualifies for waiver, provided list of facilities that accept waiver. Patient requesting referrals to [facility],
and Kay[facility] Maced[facility], sent in [facility]. Per Nakita at [facility], patient is LTC and bed hold is for 15 days, would need to return to LTC from SNF before bed hold expires. CM will continue to follow for discharge planning needs.
Plan; SNF pending accepting facility, with waiver program.
--- NOTE | 2023-07-06 14:52 | W.PN.HOSP.TC ---
Today's Communication/Plan
-
dc ready
cm aware
Assessment / Plan
Assessment / Plan
Physical Exam
General: No Apparent Distress, Conversant, Morbidly Obese and Other (Oriented to name, place, place of living but not specific dates or all of medical history); No Pain, Fever or Chills
HEENT: NormoCephalic, Anicteric, PERRLA and No Ptosis
Respiratory: Clear; No Wheezes, Rales or Rhonchi
Cardiac: S1/S2, Regular Rhythm, Murmur (2/6 systolic) and Peripheral Edema (Chronic bilateral nonpitting lymphedema legs); No Rub or Gallop
Breast: Deferred by me
GI: Soft, Non Tender, Non Distended, Normal Bowel Sounds and No Hepatosplenomegaly
Rectal: Deferred by Provider
Genito-urinary: Deferred by me
Musculoskeletal: No Clubbing, No Cyanosis, Edema, Left Upper Extremity (Right wrist from recent distal radius fracture with OCL splint in place), Edema, Left Lower Extremity (Chronic nonpitting lymphedema) and Edema, Right Lower Extremity (Chronic
nonpitting lymphedema); No Edema, Right Upper Extremity
Skin: Warm and Dry; No Rash
Neuro: Awake, Alert, Oriented (Name, place, place of living, some of history but not dates or reasons for meds) and AO x 3; No Slurred Speech, Facial Droop or Tremors
Psych: Calm
#Acute generalized weakness
# Ambulatory dysfunction
� No obvious infectious source
� No urinary symptoms
� IV fluids given
� Mostly deconditioned, aggressive PT/OT�most likely will need placement
� Replete electrolytes
#Hypokalemia 2/2 diuretics, decreased oral intake
Monitor and replete
#Dementia�mild.,Binswangers disease
Oriented to name, place, place of living not clear on dates
-Continue Namenda 10 mg twice daily,Donepezil
#Fracture right distal radius metaphysis on 07/01/2021
-Current volar right wrist splint in place
�Ortho PDX consulted
� Brace full-time for 5 weeks
-Follow-up orthopedics in 10 to 14 days
#Chronic ambulatory dysfunction
#Chronic falls
-Uses walker at baseline but currently unable
PT/OT/wrapper caser consult
#Chronic pain�back
-Continue oxycodone 20 mg 6 AM, 6 PM
-Continue oxycodone/acetaminophen 1 tab at bedtime 2200
#Gammaglobulin deficiency
-Has port right upper chest wall gets infusions of gammaglobulin with [facility]
#HTN�benign
Continue amlodipine 5 mg daily
#Chronic bilateral leg lymphedema
�Lasix
#Seizure history
-Continue Lamictal 200 mg twice daily
#Paroxysmal A-fib
-Continue Eliquis
-No rate control meds listed
#Pacemaker�sick sinus syndrome
#Hx PE unknown year
#CAD
#Cardiac murmur
#Asthma�no acute exacerbation
#COPD�no acute exacerbation
-Continue inhalers
#Hypothyroidism
-No meds listed
#CVA hx
#Bipolar disorder
#Depression
#Anxiety
#Schizophrenia
-Continue Klonopin 0.5 mg p.o. 4 times daily,
duloxetine 60 mg at bedtime,
Seroquel 300 mg at bedtime,
trazodone 100 mg at bedtime
Vraylar 3 mg daily
#Overactive bladder
-Continue Myrbetriq
-Monitor urine output
#Obesity due to excess calorie consumption�BMI 41.2 KG
Weight loss recommended, low-fat diet
Migraine headaches�continue Nurtec as needed
Vitamin B12 deficiency-continue folic acid, B12 1000 mcg daily
Vitamin D deficiency-continue vitamin D 2
-Dry eye syndrome, continue eyedrops
DVT prophylaxis
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
Full code
Anticipated Discharge: Within 24 hours
Subjective/Interval History
-
Date of Service: July 06, 2023
No acute events
Objective Data
-
Vital Signs:
Vital Signs
Temp Pulse Resp BP Pulse Ox
97.7 F 61 18 142/68 95
07/06/23 12:31 07/06/23 12:31 07/06/23 12:31 07/06/23 12:31 07/06/23 12:31
I&O
07/05/23 07/06/23 07/07/23
06:59 06:59 06:59
Intake Total 1560 / 1560 2059 / 2059
Output Total 325 / 325 1700 / 1700
Balance 1235 / 1235 360 / 360
Review of Systems
-
History Source: Patient
All other systems: Not reviewed unless documented
Data Reviewed
-
Diagnostic Radiology: Report Reviewed by me
Labs: Labs Reviewed by me
[2023-07-06] MEDS: KCL ELIXIR 40 MEQ PO (15:54)
[2023-07-06] MEDS: MORPHINE SULFATE 2 MG IV (15:55)
[2023-07-06 16:10] VITALS: BP 116/51
[2023-07-06] MEDS: DETROL LA 4 MG PO (17:22)
[2023-07-06] MEDS: PROTONIX 40 MG PO (17:22)
[2023-07-06 19:12] VITALS: BP 130/68
[2023-07-06] MEDS: AFRIN NASAL SPRAY 1 SPRAYS NASAL (19:52)
[2023-07-06 21:47] VITALS: BMI 36.9
[2023-07-06] MEDS: CYMBALTA DELAYED RELEASE 60 MG PO (22:15)
[2023-07-06] MEDS: SEROQUEL 300 MG PO (22:15)
[2023-07-06 22:52] VITALS: BP 126/67
[2023-07-07 03:20] VITALS: BP 121/67
[2023-07-07 05:40] LABS: Blood Urea Nitrogen 16 mg/dl (7-17); Calcium 8.8 mg/dl (8.4-10.2); Carbon Dioxide 34 mmol/L (22-30); Chloride 102 mmol/L (98-107); Estimated Creatinine Clearance 87 ml/min; Glucose 91 mg/dl (70-99); Potassium 3.1 mmol/L (3.5-5.1); Sodium 137 mmol/L (135-145); eGFR > 60.00
[2023-07-07 06:00] VITALS: BMI 36.5
[2023-07-07 07:30] VITALS: BP 118/64
[2023-07-07] MEDS: SPIRIVA RESPIMAT 2.5 MCG 2 PUFF INH (08:42)
[2023-07-07] MEDS: SYMBICORT 160/4.5 MCG INHALER 2 PUFF INH (08:43)
[2023-07-07] MEDS: MAG-TAB SR 84 MG PO (09:01)
[2023-07-07] MEDS: FLORASTOR 250 MG PO (09:01)
[2023-07-07] MEDS: NAMENDA 10 MG PO (09:01)
[2023-07-07] MEDS: OXYCONTIN (CONTROLLED RELEASE) 20 MG PO (09:01)
[2023-07-07] MEDS: KLONOPIN 0.5 MG PO ×2 (09:01→13:41)
[2023-07-07] MEDS: ELIQUIS 5 MG PO (09:01)
[2023-07-07] MEDS: FOLVITE 1 MG PO (09:01)
[2023-07-07] MEDS: LAMICTAL 200 MG PO (09:01)
[2023-07-07] MEDS: NORVASC 5 MG PO (09:02)
[2023-07-07] MEDS: AFRIN NASAL SPRAY 1 SPRAYS NASAL (09:02)
[2023-07-07] MEDS: VITAMIN B-12 1000 MCG PO (09:02)
[2023-07-07] MEDS: ATARAX 25 MG PO (09:02)
[2023-07-07] MEDS: ARICEPT 10 MG PO (09:02)
[2023-07-07] MEDS: LASIX 80 MG PO (09:02)
[2023-07-07] MEDS: DESENEX/MITRAZOL/ZEASORB 1 APPLIC TOPICAL (09:03)
[2023-07-07] MEDS: PERCOCET 5/325 1 TABLET PO (09:03)
[2023-07-07] MEDS: KCL ELIXIR 40 MEQ PO ×2 (09:17→11:39)
--- NOTE | 2023-07-07 10:21 | CM ---
Addendum entered by Mimi Perez 07/07/23 11:16:
Transport time scheduled for 2:00 p.m.
Original Note:
Patient seen bedside, discussed [facility] can accept patient, patient agreeable. CM spoke with liaison, Kamlesh, from [place] ([phone]) able to accept patient today. CM updated Nakita Soil Surveyor from patients LTC faciltiy at
[facility] on where patient will be discharging to SNF. Patient will require ambulance transport. CM will continue to follow for discharge planning needs.
Plan; [facility] SNF, will need ambulance transport.
[facility]
Report: [phone]
--- NOTE | 2023-07-07 11:30 | W.PN.HOSP.TC ---
Addendum entered and electronically signed by Joaquin Neri MD 07/08/23 17:50:
[id number]
Original Note:
Today's Communication/Plan
-
-recommend splint, immobilization, specifically Velcro splint to be worn at all times except for bathing.
-When bathing, no motion of the wrist recommended.
F/u Ortho in 10-14 days ; X-rays of the wrist at that time to be sure the fracture remains in satisfactory position.
-K repletion, start back K repletion daily; f/u bmp in 2 days
Assessment / Plan
Assessment / Plan
Physical Exam
General: No Apparent Distress, Conversant, Morbidly Obese and Other (Oriented to name, place, place of living but not specific dates or all of medical history); No Pain, Fever or Chills
HEENT: NormoCephalic, Anicteric, PERRLA and No Ptosis
Respiratory: Clear; No Wheezes, Rales or Rhonchi
Cardiac: S1/S2, Regular Rhythm, Murmur (2/6 systolic) and Peripheral Edema (Chronic bilateral nonpitting lymphedema legs); No Rub or Gallop
Breast: Deferred by me
GI: Soft, Non Tender, Non Distended, Normal Bowel Sounds and No Hepatosplenomegaly
Rectal: Deferred by Provider
Genito-urinary: Deferred by me
Musculoskeletal: No Clubbing, No Cyanosis, Edema, Left Upper Extremity (Right wrist from recent distal radius fracture with OCL splint in place), Edema, Left Lower Extremity (Chronic nonpitting lymphedema) and Edema, Right Lower Extremity (Chronic
nonpitting lymphedema); No Edema, Right Upper Extremity
Skin: Warm and Dry; No Rash
Neuro: Awake, Alert, Oriented (Name, place, place of living, some of history but not dates or reasons for meds) and AO x 3; No Slurred Speech, Facial Droop or Tremors
Psych: Calm
#Acute generalized weakness
# Ambulatory dysfunction
- acute on chronic
-has had hx of chronic falls
--Uses walker at baseline but currently unable
� No obvious infectious source
� No urinary symptoms
� IV fluids given
� Mostly deconditioned, aggressive PT/OT�most likely will need placement
� Replete electrolytes
-Thyroid level WNL
#Hypokalemia 2/2 diuretics, decreased oral intake
Monitor and replete
F/u bmp in 2 days
restart K daily
#Dementia�mild.,Binswangers disease
Oriented to name, place, place of living not clear on dates
-Continue Namenda 10 mg twice daily,Donepezil
#Fracture right distal radius metaphysis on 07/01/2021
-Current volar right wrist splint in place
�Ortho PDX consulted
-recommend splint, immobilization, specifically Velcro splint to be worn at all times except for bathing.
-When bathing, no motion of the wrist recommended.
F/u Ortho in 10-14 days ; X-rays of the wrist at that time to be sure the fracture remains in satisfactory position.
#Chronic pain�back
-Continue oxycodone 20 mg 6 AM, 6 PM
-Continue oxycodone/acetaminophen 1 tab at bedtime 2200
#Gammaglobulin deficiency
-Has port right upper chest wall gets infusions of gammaglobulin with [facility]
#HTN�benign
Continue amlodipine 5 mg daily
#Chronic bilateral leg lymphedema
�Lasix
#Seizure history
-Continue Lamictal 200 mg twice daily
#Paroxysmal A-fib
-Continue Eliquis
-No rate control meds listed
#Pacemaker�sick sinus syndrome
#Hx PE unknown year
#CAD
#Cardiac murmur
#Asthma�no acute exacerbation
#COPD�no acute exacerbation
-Continue inhalers
#Hypothyroidism
-No meds listed
#CVA hx
#Bipolar disorder
#Depression
#Anxiety
#Schizophrenia
-Continue Klonopin 0.5 mg p.o. 4 times daily,
duloxetine 60 mg at bedtime,
Seroquel 300 mg at bedtime,
trazodone 100 mg at bedtime
Vraylar 3 mg daily
#Overactive bladder
-Continue Myrbetriq
-Monitor urine output
#Obesity due to excess calorie consumption�BMI 41.2 KG
Weight loss recommended, low-fat diet
Migraine headaches�continue Nurtec as needed
Vitamin B12 deficiency-continue folic acid, B12 1000 mcg daily
Vitamin D deficiency-continue vitamin D 2
-Dry eye syndrome, continue eyedrops
DVT prophylaxis
Continue [employer] Eliquis
Full code
More than 30 minutes spent in discharge including
Final examination of the patient
Summarizing hospital stay
Instructions for continuing care to all relevant caregivers
Preparation of discharge records, prescriptions, and referral forms
Total time spent (35 in minutes):
Anticipated Discharge: Today
Subjective/Interval History
-
Date of Service: July 07, 2023
no acute events
Objective Data
-
Labs:
Laboratory Results
07/07/23
05:00
Sodium 137
Potassium 3.1 L
Chloride 102
Carbon Dioxide 34 H
BUN 16
Creatinine 0.8
Glucose 91
Calcium 8.8
Vital Signs:
Vital Signs
Temp Pulse Resp BP Pulse Ox
97.7 F 63 16 118/64 98
07/07/23 07:30 07/07/23 09:02 07/07/23 08:45 07/07/23 09:02 07/07/23 08:45
I&O
07/06/23 07/07/23 07/08/23
06:59 06:59 06:59
Intake Total 2059 1730 / 173
Output Total 1700 / 1700 2600 / 2600
Balance 360 / 360 -870 / -870
Review of Systems
-
History Source: Patient
All other systems: Not reviewed unless documented
Physical Exam
-
General: Well Developed, Well Nourished, No Apparent Distress and Morbidly Obese
HEENT: Normocephalic, Atraumatic and Moist Mucous Membranes
Respiratory: Clear to Auscultation
Cardiac: Regular Rhythm, S1/S2 and Murmur (3/6AS)
GI: Soft, Nontender and Nondistended
Musculoskeletal: No Clubbing, No Cyanosis, Edema, Right Lower Extrem (lymphedema) and Edema, Left Lower Extrem
Neuro: Awake, Alert and Oriented
Psych: Calm
Data Reviewed
-
Diagnostic Radiology: Report Reviewed by me
Labs: Labs Reviewed by me
[2023-07-07 11:39] VITALS: BP 156/76
--- NOTE | 2023-07-07 11:39 | W.DS.TRANS ---
DC Summary - [employer]
-
Discharge Instructions:
Discharge Diagnosis/Procedures
#Acute generalized weakness
# Ambulatory dysfunction
#Fracture right distal radius metaphysis on 07/01
Diet Low Cholesterol,Low Fat
Activity As tolerated
Blood Work bmp in 2 days - monitoring K
Instructions:
Stand-Alone Forms:
Changes to Home Medications: Yes
Discharge Medications:
DC Medications w/original date entered in [employer]
nitroglycerin 0.4 mg sublingual tablet 0.4 mg sublingual [id number] PRN chest pain 12/20/18
mirabegron 25 mg tablet,extended release 24 hr (Myrbetriq) 50 mg PO QPM Urinary Issue 09/05/19
memantine 10 mg tablet 10 mg PO BID Dementia 08/28/20
simethicone 80 mg chewable tablet (Gas Relief (simethicone)) 80 mg PO Q6HPRN PRN gas 08/28/20
ondansetron HCl 8 mg tablet 8 mg PO Q6HPRN PRN nausea/vomiting 09/01/20
folic acid 1 mg tablet 1 mg PO DAILY Supplement 09/02/20
quetiapine 300 mg tablet 300 mg PO HS mental health 10/30/20
trazodone 100 mg tablet 100 mg PO HS sleep 10/30/20
meclizine 25 mg tablet 25 mg PO Q6HPRN PRN dizziness 12/28/20
nystatin 100,000 unit/gram topical powder (Nyamyc) 1 applic topical [id number] PRN FOLDS/GROIN 12/28/20
duloxetine 60 mg capsule,delayed release 120 mg PO HS Depression 05/19/21
rimegepant 75 mg disintegrating tablet (Nurtec ODT) 75 mg PO Q48H migraines 12/10/21
budesonide 160 mcg-glycopyr 9 mcg-formot 4.8 mcg/actuation HFA inhaler (Breztri Aerosphere) 2 inh inhalation R BID Lung/Breathing Issues 01/21/22
Saccharomyces boulardii 250 mg capsule (Florastor) 250 mg PO BID probiotic 11/26/22
aluminum-mag hydroxide-simethicone 200 mg-200 mg-20 mg/5 mL oral susp 20 ml PO Q6HPRN PRN stomach distress 11/26/22
amlodipine 5 mg tablet 5 mg PO DAILY Blood Pressure 11/26/22
cariprazine 1.5 mg capsule (Vraylar) 3 mg PO DAILY Depression 11/26/22
cyanocobalamin (vitamin B-12) 1,000 mcg tablet (Vitamin B-12) 1,000 mcg PO DAILY Supplement 11/26/22
ergocalciferol (vitamin D2) 1,250 mcg (50,000 unit) capsule 1,250 mcg PO WE Supplement 11/26/22
ferrous sulfate, dried 159 mg (45 mg iron) tablet,extended release 159 mg PO BID Supplement 11/26/22
furosemide 80 mg tablet 80 mg PO BID Fluid Retention/Swelling 11/26/22
guaifenesin 600 mg tablet, extended release 12 hr (Mucinex) 600 mg PO BID Cough 11/26/22
hydroxyzine HCl 25 mg tablet 25 mg PO BID Allergies 11/26/22
lamotrigine 200 mg tablet 200 mg PO Q12H Seizures 11/26/22
magnesium oxide 420 mg tablet 420 mg PO BID Electrolyte Repletion 11/26/22
naloxone 0.4 mg/mL injection solution 0.4 mg IM Q2MPRN PRN opioid overdose 11/26/22
oxymetazoline 0.05 % nasal spray 1 spray intranasal BID Congestion ##0 11/26/22
pantoprazole 40 mg tablet,delayed release 40 mg PO QPM Gastrointestinal Issue 11/26/22
polyethylene glycol 3350 17 gram oral powder packet (Miralax) 17 g PO DAILYPRN PRN irregularity 11/26/22
polyvinyl alcohol-povidone (PF) 1.4 %-0.6 % eye drops in a dropperette (Refresh Classic (PF)) 1 drp BOTH EYES Q6HPRN PRN dry eyes 11/26/22
apixaban 5 mg tablet (Eliquis) 5 mg PO BID Blood Clot Prevention/Tx 11/27/22
chlorhexidine gluconate 4 % topical liquid (Hibiclens) 1 applic topical SUWE Skin Issues 02/27/23
donepezil 10 mg tablet 10 mg PO BID MENTAL ABILITY 02/27/23
clonazepam 0.5 mg tablet 0.5 mg PO TID 07/04/23
loperamide 2 mg tablet 2 mg PO TID diarrhea 07/04/23
oxycodone 20 mg tablet,crush resistant,extended release 12 hr (OxyContin) 20 mg PO Q12 pain 07/04/23
oxycodone-acetaminophen 5 mg-325 mg tablet 1 tab PO Q6HPRN PRN moderate pain 07/04/23
phenylephrine 0.25 %-pramoxine 1 %-glycerin-wh.petrolatum rectal cream (Preparation H Maximum Strength) 1 applic [place] BIDPRN PRN HEMORRHIODS 07/04/23
potassium chloride 20 mEq tablet,extended release(part/cryst) 20 meq PO DAILY Electrolyte Repletion 07/04/23
clonazepam 0.5 mg tablet 0.5 mg PO QID #12 tabs 07/07/23
miconazole nitrate 2 % topical powder (Miconazorb AF) 1 applic topical BID #85 grams 07/07/23
Home Medication Changes
miconazole nitrate 2 % topical powder (Miconazorb AF) 1 applic topical BID #85 grams 07/07/23
Pending Results: No
== END 2023-07-07 14:48 ==
LOC: 4 WEST ACU 13:08
PROVIDERS: Clinical Nurse Specialist Family Health; Physician Assistant; ADMITTING PHYSICIAN Internal Medicine; CONSULT PHYSICIAN Orthopaedic Surgery Hand Surgery; EMERGENCY PHYSICIAN Emergency Medicine; FAMILY PHYSICIAN Internal Medicine
DX: R53.1 Weakness (principal); E86.0 Dehydration; E87.6 Hypokalemia; T50.2X5A Adverse effect of carbonic-anhydrase inhibitors, benzothiadiazides and other diuretics, initial encounter; R56.9 Unspecified convulsions; I25.10 Atherosclerotic heart disease of native coronary artery without angina pectoris; J44.89 Other specified chronic obstructive pulmonary disease; N32.81 Overactive bladder; H04.129 Dry eye syndrome of unspecified lacrimal gland; G43.909 Migraine, unspecified, not intractable, without status migrainosus; G89.29 Other chronic pain; R26.2 Difficulty in walking, not elsewhere classified; I67.3 Progressive vascular leukoencephalopathy; F03.A3 Unspecified dementia, mild, with mood disturbance; F03.A4 Unspecified dementia, mild, with anxiety; F31.9 Bipolar disorder, unspecified; E03.9 Hypothyroidism, unspecified; I89.0 Lymphedema, not elsewhere classified; D80.1 Nonfamilial hypogammaglobulinemia; F20.9 Schizophrenia, unspecified; E55.9 Vitamin D deficiency, unspecified; E53.8 Deficiency of other specified B group vitamins; I48.0 Paroxysmal atrial fibrillation; E66.01 Morbid (severe) obesity due to excess calories; F11.20 Opioid dependence, uncomplicated; Z11.52 Encounter for screening for COVID-19; Z79.01 Long term (current) use of anticoagulants; Z79.899 Other long term (current) drug therapy; Z68.36 Body mass index [BMI] 36.0-36.9, adult; Z86.711 Personal history of pulmonary embolism; Z95.0 Presence of cardiac pacemaker; I69.351 Hemiplegia and hemiparesis following cerebral infarction affecting right dominant side; Z87.891 Personal history of nicotine dependence; S52.591D Other fractures of lower end of right radius, subsequent encounter for closed fracture with routine healing; W19.XXXD Unspecified fall, subsequent encounter; I50.9 Heart failure, unspecified; I11.0 Hypertensive heart disease with heart failure; M18.11 Unilateral primary osteoarthritis of first carpometacarpal joint, right hand
CPT/HCPCS: 80048; 80053; 83605; 83735; 84443; 85025; 87070; 87502; 87811; 93005; 94640; 96361; 96374; 97116; 97163; 97167; 97530; 99285; G0378

== ENCOUNTER 2023-07-30 17:43 | Emergency (ER) | payer MEDICARE, SELFPAY ==
[2023-07-30 17:44] VITALS: BP 140/73
[2023-07-30 17:53] VITALS: BP 140/73
[2023-07-30 17:56] VITALS: BMI 37.3
[2023-07-30 18:00] VITALS: BP 151/76
[2023-07-30 18:50] VITALS: BP 141/67
[2023-07-30 19:00] VITALS: BP 142/65
--- NOTE | 2023-07-30 19:49 | ED.GENMED ---
History of Present Illness
General
Chief Complaint: Fall
Time Seen by Provider: 07/30/23 17:45
Travel History
Have you had any contact with someone who has COVID-19?: No
Do you have any symptoms of coronavirus? Fever > 100 degrees, chills, cough, shortness of breath, sore throat, loss of taste or smell, muscle aches, or headache?: No
History of Present Illness
History of Present Illness:
67-year-old female with chronic gait difficulty and tar dive dyskinesia presents to the emergency department for evaluation of a fall that occurred earlier today. She states that she was seated at the edge of her bed holding on for support when her
day care center director walked away, the patient began to feel weak and fell to the ground. She indicates that she has pain to her neck as well as her head. There is evidence of head strike to the left orbit. She is on blood thinners. She was apparently found
by EMS with a blanket and pillows underneath her. There is a cast on her right wrist from a recent injury after a similar fall.
Past History
Past History
ED Past Medical History: Arrthythmia, Asthma, CAD, COPD, CVA, HTN, MS, Seizures, Hypothyroidism, Psychiatric, Other and Other
ED Past Surgical History: Cardiac, Cholecystectomy, Orthopedic and Other
Social History
Tobacco: Former smoker
Alcohol: None
Drug: None
Personal: Single
Living: penitentiary
Employment: Disabled
Family History
Family History: Hypertension
Review of Systems
Review of Systems
Allergies reviewed?: Yes
All Other Systems: ROS reviewed and negative except as documented in HPI and ROS
Phy Exam
Physical Exam
Physical Exam:
GEN: Well appearing, NAD, WDWN
Eyes: PERRLA, EOMs intact, no scleral icterus
HENT: Minor ecchymosis and swelling to the left lateral superior orbital rim with no crepitus or deformity, oral mucosa moist
Lungs: CTAB, no wheezes, rales, rhonchi, normal chest wall excursion
Cardiac: RRR, no M/R/G, no peripheral edema. Radial pulses 2+ bilat
Abdomen: S, NT, ND, NABS, no masses or hepatosplenomegaly
Neuro: AO x 3, no focal deficits to BUE/BLE, normal sensation throughout
MSK: No gross deformity or ecchymosis. Short arm cast on the right wrist. Arrives with c-collar immobilization, C-spine precautions maintained, no pelvic tenderness or crepitus
Skin: No rashes, petechiae. Normal color, no pallor or jaundice.
Psych: Calm, cooperative, proper hygiene
Course
Orders/Labs/Results
Orders:
Orders
07/30/23 17:54
CT Cervical Spine W/o Iv Contr Urgent
Comment:
Reason For Exam: fall
CT Head W/o Iv Contrast Urgent
Comment:
Reason For Exam: fall
Vital Signs
Initial and Last Documented VS:
Initial Vital Signs
Temp Pulse Resp BP Pulse Ox
97.8 F 67 19 140/73 96
07/30/23 17:44 07/30/23 17:44 07/30/23 17:44 07/30/23 17:44 07/30/23 17:44
Last Documented Vital Signs
Temp Pulse Resp BP Pulse Ox
97.8 F 61 11 142/65 96
07/30/23 17:44 07/30/23 19:00 07/30/23 19:00 07/30/23 19:00 07/30/23 19:00
MDM/Problems Addressed
MDM/Problems Addressed:
CT of the head and cervical spine obtained due to the mechanism of injury and these were unremarkable. Patient with no other signs of acute injury. No indication for labs. Discharged back to [facility] in stable condition
*Critical Care Note
Total Time (30-74mins, 75-104mins- exclusive of procedures): Not Applicable
ED Attending Note
-
Portions of this chart may have been created with voice recognition software.� Occasional wrong word or��sound alike� substitutions may have occurred due to the inherent limitations of voice recognition software.
Discharge Plan
Departure
Patient Disposition: Long-Term/SNF
Date of Disposition: 07/30/23
Time of Disposition: 19:52
Admit to: Med/Surg
Discharge Problem:
Fall from ground level
Prescriptions:
No Action
nitroglycerin 0.4 MG tablet, sublingual
0.4 mg sublingual [id number] PRN (Reason: chest pain)
Myrbetriq 25 MG tablet extended release 24 hr
50 mg PO QPM
simethicone [Gas Relief (simethicone)] 80 MG tablet,chewable
80 mg PO Q6HPRN PRN (Reason: gas)
memantine 10 MG tablet
10 mg PO BID
ondansetron HCl 8 MG tablet
8 mg PO Q6HPRN PRN (Reason: nausea/vomiting)
folic acid 1 MG tablet
1 mg PO DAILY
quetiapine 300 MG tablet
300 mg PO HS
trazodone 100 MG tablet
100 mg PO HS
meclizine 25 MG tablet
25 mg PO Q6HPRN PRN (Reason: dizziness)
nystatin [Nyamyc] 60 GM powder
1 applic topical [id number] PRN (Reason: FOLDS/GROIN)
Rx Instructions:
redness to abdomen and groin
duloxetine 60 mg Capsule,Delayed Release(Dr/Ec)
120 mg PO HS
Breztri Aerosphere 160-9-4.8 mcg/actuation Hfa Aerosol Inhaler
2 inh INHALATION R BID
Nurtec ODT 75 mg Tablet,Disintegrating
75 mg PO Q48H
lamotrigine 200 mg tablet
200 mg PO Q12H
magnesium oxide 420 mg tablet
420 mg PO BID
polyethylene glycol 3350 [Miralax] 17 gram Powder In Packet
17 g PO DAILYPRN PRN (Reason: irregularity)
naloxone 0.4 mg/mL solution
0.4 mg IM Q2MPRN PRN (Reason: opioid overdose)
cyanocobalamin (vitamin B-12) [Vitamin B-12] 1,000 mcg Tablet
1,000 mcg PO DAILY
amlodipine 5 mg tablet
5 mg PO DAILY
furosemide 80 mg Tablet
80 mg PO BID
pantoprazole 40 mg tablet,delayed release (DR/EC)
40 mg PO QPM
hydroxyzine HCl 25 mg Tablet
25 mg PO BID
ergocalciferol (vitamin D2) 1,250 mcg (50,000 unit) Capsule
1,250 mcg PO WE
alum-mag hydroxide-simeth 200-200-20 mg/5 mL suspension
20 ml PO Q6HPRN PRN (Reason: stomach distress)
Refresh Classic (PF) 1.4-0.6 % Dropperette
1 drp BOTH EYES Q6HPRN PRN (Reason: dry eyes)
Saccharomyces boulardii [Florastor] 250 mg Capsule
250 mg PO BID
ferrous sulfate, dried 159 mg (45 mg iron) Tablet Extended Release
159 mg PO BID
guaifenesin [Mucinex] 600 mg Tablet Extended Release 12hr
600 mg PO BID
Vraylar 1.5 mg capsule
3 mg PO DAILY
oxymetazoline 0.05 % [place],Non-Aerosol
1 spray INTRANASAL BID Qty: 0
Eliquis 5 mg Tablet
5 mg PO BID
donepezil 10 mg tablet
10 mg PO BID
chlorhexidine gluconate [Hibiclens] 4 % Liquid
1 applic TOPICAL SUWE
Rx Instructions:
groin
loperamide 2 mg Tablet
2 mg PO TID
Preparation H Maximum Strength 0.25-1 % Cream
1 applic [place] BIDPRN PRN (Reason: HEMORRHIODS )
oxycodone-acetaminophen 5-325 mg tablet
1 tab PO Q6HPRN PRN (Reason: moderate pain)
potassium chloride 20 mEq tablet,ER particles/crystals
20 meq PO DAILY
oxycodone [OxyContin] 20 mg tablet,oral only,ext.rel.12 hr
20 mg PO Q12
clonazepam 0.5 mg Tablet
0.5 mg PO TID
clonazepam 0.5 mg Tablet
0.5 mg PO QID Qty: 12 0RF
miconazole nitrate [Miconazorb AF] 2 % Powder
1 applic topical BID Qty: 85 0RF
Referrals:
Nicole Castle MD [Family Provider] -
Interventions
Interventions:
*Risk Screen - Suicide Last Done: 07/30/23 17:44
*General Assessment Last Done: 07/30/23 17:44
*Neglect/Abuse Screening Last Done: 07/30/23 17:44
ED- Fall Risk Assessment Last Done: 07/30/23 17:58
*ED COVID-19 Vaccine History Last Done: 07/30/23 17:56
ED-Musculoskeletal Assessment Last Done: 07/30/23 17:58
ED- Neurological Assessment Last Done: 07/30/23 17:58
ED-Skin Assessment Last Done: 07/30/23 17:58
Discharge Date and Time
Print Language: ROMANSH
== END 2023-07-30 21:51 ==
LOC: EMR 17:43
PROVIDERS: EMERGENCY PHYSICIAN Emergency Medicine; FAMILY PHYSICIAN Internal Medicine
DX: S00.12XA Contusion of left eyelid and periocular area, initial encounter (principal); W06.XXXA Fall from bed, initial encounter; G24.01 Drug induced subacute dyskinesia; I25.10 Atherosclerotic heart disease of native coronary artery without angina pectoris; J45.909 Unspecified asthma, uncomplicated; R26.89 Other abnormalities of gait and mobility; E03.9 Hypothyroidism, unspecified; I10 Essential (primary) hypertension; R56.9 Unspecified convulsions; I25.2 Old myocardial infarction; Z79.01 Long term (current) use of anticoagulants; Z86.73 Personal history of transient ischemic attack (TIA), and cerebral infarction without residual deficits; Z87.891 Personal history of nicotine dependence; Z90.49 Acquired absence of other specified parts of digestive tract; Z88.6 Allergy status to analgesic agent; Z88.3 Allergy status to other anti-infective agents; Z88.0 Allergy status to penicillin; Z88.8 Allergy status to other drugs, medicaments and biological substances; Z91.048 Other nonmedicinal substance allergy status
CPT/HCPCS: 99284; 70450; 72125

== ENCOUNTER → 2023-11-07 09:22 | Outpatient (REF) | payer MEDICARE, SELFPAY | LOC: RCS 09:22 | PROVIDERS: ATTENDING PHYSICIAN Internal Medicine Cardiovascular Disease; FAMILY PHYSICIAN Internal Medicine | DX: R06.09 Other forms of dyspnea (principal) | CPT/HCPCS: 93306 ==

== ENCOUNTER 2023-12-12 11:28 | Outpatient (RCR) | payer MEDICARE, SELFPAY ==
[2023-12-12 12:09] VITALS: BP 132/59
== END 2023-12-12 13:56 | disposition home or self-care (01) ==
LOC: OID 11:28
PROVIDERS: ATTENDING PHYSICIAN Internal Medicine Critical Care Medicine; FAMILY PHYSICIAN Internal Medicine; OTHER PHYSICIAN Internal Medicine; OTHER PHYSICIAN Internal Medicine Geriatric Medicine
DX: D80.8 Other immunodeficiencies with predominantly antibody defects (principal); D83.9 Common variable immunodeficiency, unspecified; D80.9 Immunodeficiency with predominantly antibody defects, unspecified
CPT/HCPCS: 96523

== ENCOUNTER 2024-01-09 11:36 | Outpatient (RCR) | payer MEDICARE, SELFPAY ==
[2024-01-09 11:46] VITALS: BP 146/73
== END 2024-01-11 10:47 | disposition home or self-care (01) ==
LOC: OID 11:36
PROVIDERS: ATTENDING PHYSICIAN Internal Medicine Critical Care Medicine; FAMILY PHYSICIAN Internal Medicine; OTHER PHYSICIAN Internal Medicine; OTHER PHYSICIAN Internal Medicine Geriatric Medicine
DX: D80.8 Other immunodeficiencies with predominantly antibody defects (principal); D83.9 Common variable immunodeficiency, unspecified; D80.9 Immunodeficiency with predominantly antibody defects, unspecified
CPT/HCPCS: 96523

== ENCOUNTER 2024-02-07 10:29 | Outpatient (RCR) | payer MEDICARE, SELFPAY ==
[2024-02-07 11:00] VITALS: BP 133/69
== END 2024-02-08 11:21 | disposition home or self-care (01) ==
LOC: OID 10:29
PROVIDERS: ATTENDING PHYSICIAN Internal Medicine Critical Care Medicine; FAMILY PHYSICIAN Internal Medicine; OTHER PHYSICIAN Internal Medicine; OTHER PHYSICIAN Internal Medicine Geriatric Medicine
DX: D80.8 Other immunodeficiencies with predominantly antibody defects (principal); D83.9 Common variable immunodeficiency, unspecified; D80.9 Immunodeficiency with predominantly antibody defects, unspecified
CPT/HCPCS: 96523

== ENCOUNTER 2024-03-06 10:53 | Outpatient (RCR) | payer MEDICARE, SELFPAY ==
[2024-03-06 11:36] VITALS: BP 121/63
== END 2024-03-08 08:18 | disposition home or self-care (01) ==
LOC: OID 10:53
PROVIDERS: ATTENDING PHYSICIAN Internal Medicine Critical Care Medicine; FAMILY PHYSICIAN Internal Medicine; OTHER PHYSICIAN Internal Medicine; OTHER PHYSICIAN Internal Medicine Geriatric Medicine
DX: D80.8 Other immunodeficiencies with predominantly antibody defects (principal); D83.9 Common variable immunodeficiency, unspecified; D80.9 Immunodeficiency with predominantly antibody defects, unspecified
CPT/HCPCS: 96523

== ENCOUNTER 2024-04-03 10:55 | Outpatient (RCR) | payer MEDICARE, SELFPAY ==
[2024-04-03 11:39] VITALS: BP 118/64
== END 2024-04-04 10:12 | disposition home or self-care (01) ==
LOC: OID 10:55
PROVIDERS: ATTENDING PHYSICIAN Internal Medicine Critical Care Medicine; FAMILY PHYSICIAN Internal Medicine; OTHER PHYSICIAN Internal Medicine; OTHER PHYSICIAN Internal Medicine Geriatric Medicine
DX: D80.8 Other immunodeficiencies with predominantly antibody defects (principal); D83.9 Common variable immunodeficiency, unspecified; D80.9 Immunodeficiency with predominantly antibody defects, unspecified
CPT/HCPCS: 96523

== ENCOUNTER → 2024-04-05 09:23 | Outpatient (REF) | payer MEDICARE, SELFPAY | LOC: HWWDC 09:23 | PROVIDERS: FAMILY PHYSICIAN Internal Medicine | DX: Z12.31 Encounter for screening mammogram for malignant neoplasm of breast (principal) | CPT/HCPCS: 77063; 77067 ==

== ENCOUNTER → 2024-04-18 09:05 | Outpatient (REF) | payer MEDICARE, SELFPAY | LOC: HWRAD 09:05 | PROVIDERS: ATTENDING PHYSICIAN Nurse Practitioner Adult Health; FAMILY PHYSICIAN Internal Medicine | DX: I67.3 Progressive vascular leukoencephalopathy (principal); R26.89 Other abnormalities of gait and mobility | CPT/HCPCS: 70450 ==

== ENCOUNTER 2024-05-01 09:27 | Outpatient (RCR) | payer MEDICARE, SELFPAY ==
[2024-05-01] VITALS (7 sets, daily range): BP systolic 120–163; BP diastolic 69–87; BMI 36.1
[2024-05-01] MEDS: TYLENOL 650 MG PO (10:03)
[2024-05-01] MEDS: DECADRON 0.6 MG IV (10:04)
[2024-05-01] MEDS: NSS 250 IV (10:04)
[2024-05-01] MEDS: ZOFRAN 54 MG IV (10:17)
[2024-05-01] MEDS: GAMMAGARD 50 IV (10:58)
[2024-05-01] MEDS: GAMMAGARD 200 IV (11:31)
[2024-05-01] MEDS: GAMMAGARD 300 IV (12:29)
== END 2024-05-02 10:05 | disposition home or self-care (01) ==
LOC: OID 09:27
PROVIDERS: ATTENDING PHYSICIAN Internal Medicine Critical Care Medicine; FAMILY PHYSICIAN Internal Medicine; OTHER PHYSICIAN Internal Medicine; OTHER PHYSICIAN Internal Medicine Geriatric Medicine
DX: D80.8 Other immunodeficiencies with predominantly antibody defects (principal); D83.9 Common variable immunodeficiency, unspecified; D80.9 Immunodeficiency with predominantly antibody defects, unspecified
CPT/HCPCS: 96361; 96365; 96366; 96375; J1569

== ENCOUNTER 2024-05-29 09:12 | Outpatient (RCR) | payer MEDICARE, SELFPAY ==
[2024-05-29] VITALS (7 sets, daily range): BP systolic 116–138; BP diastolic 68–78; BMI 36.5
[2024-05-29] MEDS: NSS 250 IV (09:42)
[2024-05-29] MEDS: TYLENOL 650 MG PO (09:43)
[2024-05-29] MEDS: DECADRON 0.6 MG IV (09:43)
[2024-05-29] MEDS: ZOFRAN 54 MG IV (09:44)
[2024-05-29] MEDS: GAMMAGARD 50 IV (10:15)
[2024-05-29] MEDS: GAMMAGARD 200 IV (10:46)
[2024-05-29] MEDS: GAMMAGARD 300 IV (11:51)
== END 2024-05-30 08:39 | disposition home or self-care (01) ==
LOC: OID 09:12
PROVIDERS: ATTENDING PHYSICIAN Internal Medicine Critical Care Medicine; FAMILY PHYSICIAN Internal Medicine; OTHER PHYSICIAN Internal Medicine; OTHER PHYSICIAN Internal Medicine Geriatric Medicine
DX: D80.8 Other immunodeficiencies with predominantly antibody defects (principal); D83.9 Common variable immunodeficiency, unspecified; D80.9 Immunodeficiency with predominantly antibody defects, unspecified
CPT/HCPCS: 96361; 96365; 96366; 96367; 96375; J1569

== ENCOUNTER 2024-06-26 09:12 | Outpatient (RCR) | payer MEDICARE, SELFPAY ==
[2024-06-26] VITALS (8 sets, daily range): BP systolic 114–149; BP diastolic 56–90; BMI 37.6
[2024-06-26] MEDS: NSS 250 IV (09:58)
[2024-06-26] MEDS: TYLENOL 650 MG PO (09:58)
[2024-06-26] MEDS: DECADRON 0.6 MG IV (09:59)
[2024-06-26] MEDS: ZOFRAN 54 MG IV (10:00)
[2024-06-26] MEDS: GAMMAGARD 50 IV (10:26)
[2024-06-26] MEDS: GAMMAGARD 200 IV (11:01)
[2024-06-26] MEDS: GAMMAGARD 300 IV (12:09)
== END 2024-06-27 09:30 | disposition home or self-care (01) ==
LOC: OID 09:12
PROVIDERS: ATTENDING PHYSICIAN Internal Medicine Critical Care Medicine; FAMILY PHYSICIAN Internal Medicine; OTHER PHYSICIAN Internal Medicine; OTHER PHYSICIAN Internal Medicine Geriatric Medicine
DX: D80.8 Other immunodeficiencies with predominantly antibody defects (principal); D83.9 Common variable immunodeficiency, unspecified; D80.9 Immunodeficiency with predominantly antibody defects, unspecified
CPT/HCPCS: 96361; 96365; 96366; 96367; 96375; J1569

== ENCOUNTER 2024-09-27 09:02 | Outpatient (RCR) | payer MEDICARE, OTHER, SELFPAY ==
[2024-09-27] VITALS (7 sets, daily range): BP systolic 134–175; BP diastolic 64–79; BMI 34.9
[2024-09-27] MEDS: TYLENOL 650 MG PO (09:47)
[2024-09-27] MEDS: NSS 250 IV (09:47)
[2024-09-27] MEDS: ZOFRAN 54 MG IV (09:50)
[2024-09-27] MEDS: DECADRON 0.6 MG IV (09:50)
[2024-09-27] MEDS: GAMMAGARD 50 IV (10:21)
[2024-09-27] MEDS: GAMMAGARD 200 IV (10:57)
[2024-09-27] MEDS: GAMMAGARD 300 IV (12:03)
== END 2024-09-28 09:59 | disposition home or self-care (01) ==
LOC: OID 09:02
PROVIDERS: ATTENDING PHYSICIAN Internal Medicine Critical Care Medicine; FAMILY PHYSICIAN Internal Medicine; OTHER PHYSICIAN Internal Medicine; OTHER PHYSICIAN Internal Medicine Geriatric Medicine
DX: D80.8 Other immunodeficiencies with predominantly antibody defects (principal); D50.8 Other iron deficiency anemias (principal); D83.9 Common variable immunodeficiency, unspecified; D80.9 Immunodeficiency with predominantly antibody defects, unspecified
CPT/HCPCS: 96361; 96365; 96366; 96367; 96375; J1569

== ENCOUNTER 2024-10-31 09:16 | Outpatient (RCR) | payer MEDICARE, OTHER, SELFPAY ==
[2024-10-31] VITALS (7 sets, daily range): BP systolic 95–130; BP diastolic 53–88
[2024-10-31] MEDS: NSS 250 IV (09:45)
[2024-10-31] MEDS: ZOFRAN 54 MG IV (09:46)
[2024-10-31] MEDS: DECADRON 0.6 MG IV (09:46)
[2024-10-31] MEDS: TYLENOL 650 MG PO (09:48)
[2024-10-31] MEDS: GAMMAGARD 50 IV (10:24)
[2024-10-31] MEDS: GAMMAGARD 200 IV (11:02)
[2024-10-31] MEDS: GAMMAGARD 300 IV (12:08)
== END 2024-11-01 10:02 | disposition home or self-care (01) ==
LOC: OID 09:16
PROVIDERS: ATTENDING PHYSICIAN Internal Medicine Critical Care Medicine; FAMILY PHYSICIAN Internal Medicine; OTHER PHYSICIAN Internal Medicine; OTHER PHYSICIAN Internal Medicine Geriatric Medicine
DX: D80.8 Other immunodeficiencies with predominantly antibody defects (principal); D83.9 Common variable immunodeficiency, unspecified; D80.9 Immunodeficiency with predominantly antibody defects, unspecified
CPT/HCPCS: 96365; 96366; 96367; 96374; 96375; J1569

== ENCOUNTER 2024-11-29 09:19 | Outpatient (RCR) | payer MEDICARE, OTHER, SELFPAY ==
[2024-11-29] VITALS (12 sets, daily range): BP systolic 78–142; BP diastolic 48–74; BMI 34.7
[2024-11-29] MEDS: NSS 250 IV (10:04)
[2024-11-29] MEDS: TYLENOL 650 MG PO (10:04)
[2024-11-29] MEDS: ZOFRAN 54 MG IV (10:05)
[2024-11-29] MEDS: DECADRON 0.6 MG IV (10:05)
[2024-11-29] MEDS: GAMMAGARD 50 IV (10:37)
[2024-11-29] MEDS: GAMMAGARD 200 IV (11:07)
[2024-11-29] MEDS: GAMMAGARD 300 IV (12:18)
== END 2024-11-30 10:00 | disposition home or self-care (01) ==
LOC: OID 09:19
PROVIDERS: ATTENDING PHYSICIAN Internal Medicine Critical Care Medicine; FAMILY PHYSICIAN Internal Medicine; OTHER PHYSICIAN Internal Medicine; OTHER PHYSICIAN Internal Medicine Geriatric Medicine
DX: D80.8 Other immunodeficiencies with predominantly antibody defects (principal); D83.9 Common variable immunodeficiency, unspecified; D80.9 Immunodeficiency with predominantly antibody defects, unspecified
CPT/HCPCS: 96361; 96365; 96366; 96367; 96375; J1569

== ENCOUNTER 2024-12-27 09:07 | Outpatient (RCR) | payer MEDICARE, OTHER, SELFPAY ==
[2024-12-27] VITALS (8 sets, daily range): BP systolic 111–156; BP diastolic 61–77; BMI 34.6
[2024-12-27] MEDS: TYLENOL 650 MG PO (10:02)
[2024-12-27] MEDS: NSS 250 IV (10:02)
[2024-12-27] MEDS: DECADRON 0.6 MG IV (10:03)
[2024-12-27] MEDS: ZOFRAN 54 MG IV (10:04)
[2024-12-27] MEDS: GAMMAGARD 50 IV (10:31)
[2024-12-27] MEDS: GAMMAGARD 200 IV (11:04)
[2024-12-27] MEDS: GAMMAGARD 300 IV (12:13)
== END 2024-12-28 09:26 | disposition home or self-care (01) ==
LOC: OID 09:07
PROVIDERS: ATTENDING PHYSICIAN Internal Medicine Critical Care Medicine; FAMILY PHYSICIAN Internal Medicine; OTHER PHYSICIAN Internal Medicine; OTHER PHYSICIAN Internal Medicine Geriatric Medicine
DX: D80.8 Other immunodeficiencies with predominantly antibody defects (principal); D83.9 Common variable immunodeficiency, unspecified; D80.9 Immunodeficiency with predominantly antibody defects, unspecified
CPT/HCPCS: 96361; 96365; 96366; 96367; 96375; J1569

== ENCOUNTER 2025-01-24 09:16 | Outpatient (RCR) | payer MEDICARE, OTHER, SELFPAY ==
[2025-01-24] VITALS (7 sets, daily range): BP systolic 121–173; BP diastolic 63–92; BMI 33.4
[2025-01-24] MEDS: TYLENOL 650 MG PO (09:57)
[2025-01-24] MEDS: NSS 250 IV (09:58)
[2025-01-24] MEDS: DECADRON 0.6 MG IV (09:58)
[2025-01-24] MEDS: ZOFRAN 54 MG IV (09:58)
[2025-01-24] MEDS: GAMMAGARD 50 IV (10:28)
[2025-01-24] MEDS: GAMMAGARD 200 IV (11:01)
[2025-01-24] MEDS: GAMMAGARD 300 IV (12:10)
== END 2025-01-25 09:44 | disposition home or self-care (01) ==
LOC: OID 09:16
PROVIDERS: ATTENDING PHYSICIAN Internal Medicine Critical Care Medicine; FAMILY PHYSICIAN Internal Medicine; OTHER PHYSICIAN Internal Medicine; OTHER PHYSICIAN Internal Medicine Geriatric Medicine
DX: D80.8 Other immunodeficiencies with predominantly antibody defects (principal); D83.9 Common variable immunodeficiency, unspecified; D80.9 Immunodeficiency with predominantly antibody defects, unspecified
CPT/HCPCS: 96361; 96365; 96366; 96367; 96375; J1569

== ENCOUNTER 2025-02-21 09:17 | Outpatient (RCR) | payer MEDICARE, OTHER, SELFPAY ==
[2025-02-21] VITALS (8 sets, daily range): BP systolic 127–165; BP diastolic 0–90; BMI 34.9
[2025-02-21] MEDS: NSS 250 IV (09:51)
[2025-02-21] MEDS: TYLENOL 650 MG PO (09:51)
[2025-02-21] MEDS: ZOFRAN 54 MG IV (10:08)
[2025-02-21] MEDS: DECADRON 0.6 MG IV (10:08)
[2025-02-21] MEDS: GAMMAGARD 50 IV (10:35)
[2025-02-21] MEDS: GAMMAGARD 200 IV (11:12)
[2025-02-21] MEDS: GAMMAGARD 300 IV (12:16)
== END 2025-02-22 10:40 | disposition home or self-care (01) ==
LOC: OID 09:17
PROVIDERS: ATTENDING PHYSICIAN Internal Medicine Critical Care Medicine; FAMILY PHYSICIAN Internal Medicine; OTHER PHYSICIAN Internal Medicine; OTHER PHYSICIAN Internal Medicine Geriatric Medicine
DX: D80.8 Other immunodeficiencies with predominantly antibody defects (principal); D83.9 Common variable immunodeficiency, unspecified; D80.9 Immunodeficiency with predominantly antibody defects, unspecified
CPT/HCPCS: 96361; 96365; 96366; 96367; 96375; J1569